=== PATIENT | female | born 1985 | race Caucasian/White ===

== ENCOUNTER 2016-09-07 04:34 | Emergency (ER) | payer SELFPAY ==
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
[2016-09-07] MEDS ORDERED: morphine CARPU-JECT 2 MG/1 ML DISP.SYRIN IVPUSH ONE (04:42)
[2016-09-07] MEDS ORDERED: ONDANSETRON 4 MG/2 ML VIAL IVPUSH STA (04:42)
[2016-09-07] MEDS ORDERED: morphine CARPU-JECT 4 MG/1 ML DISP.SYRIN ONE (04:53)
[2016-09-07] MEDS ORDERED: ONDANSETRON 4 MG/2 ML VIAL ONE (04:53)
[2016-09-07] MEDS ORDERED: morphine CARPU-JECT 2 MG/1 ML DISP.SYRIN ONE (04:53)
[2016-09-07 05:17] VITALS: BMI 26.6
[2016-09-07] MEDS ORDERED: KETOROLAC TROMETHAMINE 30 MG/1 ML VIAL IVPUSH ONE (05:27)
[2016-09-07] MEDS ORDERED: LIDOCAINE HCL/PF 1% SDV 5ML VIAL ONE (05:28)
[2016-09-07] MEDS ORDERED: KETOROLAC TROMETHAMINE 30 MG/1 ML VIAL ONE (05:28)
[2016-09-07] MEDS ORDERED: OXYCODONE/APAP 5/325MG COMBO TABLET PO ONE (05:56)
[2016-09-07] MEDS ORDERED: OXYCODONE/APAP 5/325MG COMBO TABLET ONE (05:58)
[2016-09-07 06:14] VITALS: BP 120/88; PULSE 87
== END 2016-09-07 06:15 | disposition home or self-care (01) ==
LOC: JER 04:34
PROC: 3E033GC Introduction of Other Therapeutic Substance into Peripheral Vein, Percutaneous Approach (ICD-10-PCS; principal; 2016-09-07)
PROC: 3E033NZ Introduction of Analgesics, Hypnotics, Sedatives into Peripheral Vein, Percutaneous Approach (ICD-10-PCS; 2016-09-07)
DX: S63.105A Unspecified dislocation of left thumb, initial encounter (principal); Y04.8XXA Assault by other bodily force, initial encounter; Y93.89 Activity, other specified; Y92.481 Parking lot as the place of occurrence of the external cause; F17.210 Nicotine dependence, cigarettes, uncomplicated
CPT/HCPCS: 73130-TC-LT; 73130-TC-RT; 73140-TC-LT; 99283-25

== ENCOUNTER 2017-08-27 20:22 | Inpatient (IN) | payer SELFPAY ==
[2017-08-27] MEDS ORDERED: IBUPROFEN 100 MG/5 ML UNIT DOSE CUPS ONE (20:38)
[2017-08-27] MEDS ORDERED: IBUPROFEN 600 MG TABLET (FP) PO ONE (20:43)
[2017-08-27 20:55] LABS: HCG,QUALITATIVE URINE NEGATIVE
[2017-08-27 20:59] LABS: URINE APPEARANCE SLCLOUDY; URINE BILIRUBIN NEGATIVE (NEGATIVE); URINE BLOOD 1+ (NEGATIVE); URINE COLOR LTYELLOW; URINE GLUCOSE (UA) NEGATIVE (NEGATIVE); URINE KETONE NEGATIVE (NEGATIVE); URINE LEUK ESTERASE TRACE (NEGATIVE); URINE NITRITE NEGATIVE (NEGATIVE); URINE PROTEIN NEGATIVE (NEGATIVE)
[2017-08-27 21:09] LABS: EPI CELLS FEW /HPF (FEW); URINE BACTERIA RARE /hpf (NONE SEEN)
--- NOTE | 2017-08-27 22:21 | PDOC ---
History of Present Illness - General Chief Complaint: SIRS, Suspected/Possible Stated Complaint: FEVER Time Seen by Provider: 08/27/17 22:21 - History of Present Illness Initial Comments: 08/27/17 22:22 Ms. Hinojosa is a 31 yo female w/ pmh of R sided hydronephrosis who presents for evaluation of left sided lower back pain. She reports it started 2 days ago and has been more or less constant. She has previously been diagnosed with hydronephrosis and says that this feels similar although it is on the other side. She took her temperature at home which was 103 and 102.3 at triage. She also reports some nausea and vomiting. The patient denies chest pain, shortness of breath, headache and dizziness. Denies chills, diarrhea and constipation. Denies dysuria, frequency, urgency and hematuria. Allergies: NKDA Past History - Past Medical History Allergies/Adverse Reactions: Allergies Allergy/AdvReac Type Severity Reaction Status Date / Time No Known Allergies Allergy Verified 03/20/16 19:21 Home Medications: Ambulatory Orders Ibuprofen [Motrin -] 600 mg PO TID PRN #20 tablet 03/20/16 Ergocalciferol [Vitamin D2] 50,000 unit PO WEEKLY 08/27/17 Rabeprazole Sodium [Aciphex] 20 mg PO PRN PRN 08/27/17 Cancer: Yes (stomach) COPD: No Other medical history: hydronephrosis bilat - Reproductive History (#): 3 Para: 3 - Immunization History Immunization Up to Date: No - Suicide/Smoking/Psychosocial Hx Smoking Status: Yes Smoking History: Current every day smoker Number of Cigarettes Smoked Daily: 10 Information on smoking cessation initiated: No 'Breaking Loose' booklet given: 03/20/16 Hx Alcohol Use: No Drug/Substance Use Hx: No Substance Use Type: None Review of Systems - Review of Systems Comments:: 08/27/17 23:54 GENERAL/CONSTITUTIONAL: +Fever as described. No weakness. HEAD, EYES, EARS, NOSE AND THROAT: No change in vision. No ear pain or discharge. No sore throat. CARDIOVASCULAR: No chest pain or shortness of breath RESPIRATORY: No cough, wheezing, or hemoptysis. GASTROINTESTINAL: Nausea with vomiting from pain; No diarrhea or constipation. GENITOURINARY: No dysuria, frequency, or change in urination. MUSCULOSKELETAL: +Left back pain SKIN: No rash NEUROLOGIC: No headache, vertigo, loss of consciousness, or change in strength/ sensation. ENDOCRINE: No increased thirst. No abnormal weight change HEMATOLOGIC/LYMPHATIC: No anemia, easy bleeding, or history of blood clots. ALLERGIC/IMMUNOLOGIC: No hives or skin allergy. *Physical Exam - Vital Signs Last Vital Signs Temp Pulse Resp BP Pulse Ox 102 F H 124 H 26 H 124/72 98 08/27/17 20:44 08/27/17 20:44 08/27/17 20:44 08/27/17 20:44 08/27/17 20:44 - Physical Exam Comments: 08/27/17 23:55 GENERAL: Awake, alert, and fully oriented, in no acute distress HEAD: No signs of trauma, normocephalic, atraumatic EYES: PERRLA, EOMI, sclera anicteric, conjunctiva clear ENT: Auricles normal inspection, hearing grossly normal, nares patent, oropharynx clear without exudates. Moist mucosa NECK: Normal ROM, supple, no lymphadenopathy, JVD, or masses LUNGS: No distress, speaks full sentences, clear to auscultation bilaterally HEART: Regular rate and rhythm, normal S1 and S2, no murmurs, rubs or gallops, peripheral pulses normal and equal bilaterally. ABDOMEN: Soft, nontender, normoactive bowel sounds. No guarding, no rebound. No masses EXTREMITIES: +Extreme Left CVA tenderness to palpation. NEUROLOGICAL: Cranial nerves II through XII grossly intact. Normal speech, normal gait, no focal sensorimotor deficits SKIN: Warm, Dry, normal turgor, no rashes or lesions noted. ED Treatment Course - LABORATORY CBC & Chemistry Diagram: 08/27/17 22:45 08/27/17 23:33 - ADDITIONAL ORDERS Additional order review: Laboratory Results 08/27/17 20:44 Urine Color Ltyellow Urine Appearance Slcloudy Urine pH 7.0 Ur Specific Talmo 1.018 Urine Protein Negative Urine Glucose (UA) Negative Urine Ketones Negative Urine Blood 1+ H Urine Nitrite Negative Urine Bilirubin Negative Urine Urobilinogen 2.0 H Ur Leukocyte Esterase Trace Urine WBC (Auto) 1 Urine RBC (Auto) 6 Ur Epithelial Cells Few Urine Bacteria Rare Urine HCG, Qual Negative - Medications Given in the ED: ED Medications Discontinued Medications Generic Name Dose Route Start Last Admin Trade Name Freq PRN Reason Stop Dose Admin Ibuprofen 600 mg 08/27/17 20:43 08/27/17 20:44 Motrin - PO 08/27/17 20:44 600 mg NOW ONE Administration Medical Decision Making - Medical Decision Making 08/28/17 01:00 Ms. Hinojosa is a 31 yo female w/ pmh as described who presents w/ symptoms of lower left back pain and fever. Workup begun with basic labs and abdomen/pelvis CT. Tylenol given for fever control. CT noted 4.6x4.3 septated left ovarian cyst. US ordered for further evaluation. 08/28/17 03:37 US revealed right ovarian cyst 1.0cm complex or possibly hemorrhagic; left ovarian cyst 3.6cm complex or possibly hemorrhagic. 08/28/17 03:38 Patient labs grossly wnl as below. Will admit patient for PEDIATRIC NURSE PRACTITIONER evaluation and pain control. Laboratory Results - last 24 hr 08/27/17 08/27/17 08/27/17 20:44 22:45 22:45 WBC 13.0 H RBC 4.48 Hgb 13.9 Hct 41.6 MCV 93.1 MCH 31.2 MCHC 33.5 RDW 13.4 Plt Count 141 MPV 10.8 D Neutrophils % 76.5 D Lymphocytes % 15.7 D Monocytes % 5.7 Eosinophils % 1.8 Basophils % 0.3 Sodium Cancelled Potassium Cancelled Chloride Cancelled Carbon Dioxide Cancelled Anion Gap Cancelled BUN Cancelled Creatinine Cancelled Creat Clearance w eGFR Cancelled Random Glucose Cancelled Calcium Cancelled Total Bilirubin Cancelled AST Cancelled ALT Cancelled Alkaline Phosphatase Cancelled C-Reactive Protein Total Protein Cancelled Albumin Cancelled Urine Color Ltyellow Urine Appearance Slcloudy Urine pH 7.0 Ur Specific Talmo 1.018 Urine Protein Negative Urine Glucose (UA) Negative Urine Ketones Negative Urine Blood 1+ H Urine Nitrite Negative Urine Bilirubin Negative Urine Urobilinogen 2.0 H Ur Leukocyte Esterase Trace Urine WBC (Auto) 1 Urine RBC (Auto) 6 Ur Epithelial Cells Few Urine Bacteria Rare Urine HCG, Qual Negative 08/27/17 08/27/17 22:45 23:33 WBC RBC Hgb Hct MCV MCH MCHC RDW Plt Count MPV Neutrophils % Lymphocytes % Monocytes % Eosinophils % Basophils % Sodium 138 Potassium 3.6 Chloride 106 Carbon Dioxide 24 Anion Gap 8 BUN 11 Creatinine 0.7 Creat Clearance w eGFR > 60 Random Glucose 94 Calcium 8.1 L Total Bilirubin 0.3 D AST 16 ALT 23 Alkaline Phosphatase 87 C-Reactive Protein Cancelled 3.7 H Total Protein 6.8 Albumin 3.4 Urine Color Urine Appearance Urine pH Ur Specific Talmo Urine Protein Urine Glucose (UA) Urine Ketones Urine Blood Urine Nitrite Urine Bilirubin Urine Urobilinogen Ur Leukocyte Esterase Urine WBC (Auto) Urine RBC (Auto) Ur Epithelial Cells Urine Bacteria Urine HCG, Qual *DC/Admit/Observation/Transfer Diagnosis at time of Disposition: Pain Ovarian cyst Qualifiers: Laterality: bilateral Qualified Code(s): N83.201 - Unspecified ovarian cyst, right side - Discharge Dispostion Admit: Yes - Referrals - Patient Instructions - Post Discharge Activity
[2017-08-27] MEDS ORDERED: morphine CARPU-JECT 2 MG/1 ML DISP.SYRIN IVPUSH ONE (22:36)
[2017-08-27] MEDS ORDERED: SODIUM CHLORIDE 1,000 ML IV STA (22:36)
[2017-08-27] MEDS ORDERED: ACETAMINOPHEN 1000 MG/100 ML VIAL (NON FORMULARY) IVPB ONE (22:40)
[2017-08-27] MEDS ORDERED: ACETAMINOPHEN INJECTION 100 ML IVPB ONE (22:55)
[2017-08-27 22:58] LABS: BASO % 0.3 % (0-2.0); EOS % 1.8 % (0-4.5); HEMATOCRIT 41.6 % (32.4-45.2); HEMOGLOBIN 13.9 GM/dL (10.7-15.3); LYMPH % 15.7 % (8-40); MCH 31.2 pg (25.7-33.7); MCHC 33.5 g/dl (32.0-36.0); MEAN CELL VOLUME 93.1 fl (80-96); MEAN PLT VOLUME 10.8 fl (7.5-11.1); MONO % 5.7 % (3.8-10.2); NEUT % 76.5 % (42.8-82.8); PLATELET COUNT 141 K/MM3 (134-434); RBC 4.48 M/mm3 (3.60-5.2); RDW 13.4 % (11.6-15.6)
[2017-08-27] MEDS ORDERED: ONDANSETRON 4 MG/2 ML VIAL IVPUSH ONE (23:18)
[2017-08-27] MEDS ORDERED: ONDANSETRON 4 MG/2 ML VIAL ONE (23:35)
[2017-08-27 23:58] LABS: ALBUMIN 3.4 g/dl (3.4-5.0); ANION GAP 8 (8-16); BILIRUBIN,TOTAL 0.3 mg/dL (0.2-1.0); BLOOD UREA NITROGEN 11 mg/dL (7-18); CALCIUM 8.1 mg/dL (8.5-10.1); CHLORIDE 106 mmol/L (98-107); CO2 24 mmol/L (21-32); CREATININE 0.7 mg/dL (0.55-1.02); GLUCOSE,RANDOM 94 mg/dL (74-106); POTASSIUM 3.6 mmol/L (3.5-5.1); SGOT/AST 16 U/L (15-37); SGPT/ALT 23 U/L (12-78); SODIUM 138 mmol/L (136-145); TOT PROT 6.8 g/dl (6.4-8.2)
[2017-08-27 23:59] LABS: ALK PHOS 87 U/L (45-117)
--- NOTE | 2017-08-28 00:13 | PDOC ---
Attending Attestation - Resident Resident Name: Pete Cheney - ED Attending Attestation I have performed the following: I have examined & evaluated the patient, The case was reviewed & discussed with the resident, I agree w/resident's findings & plan - HPI HPI: 08/28/17 00:13 Pt comes with exquisite back pain and fever. If we touch her back with light touch she cries with pain. Unclear what id happening. Pt has a hx of kidney pathology. Labs are normal, except for WBC13 and CRP of 3.7 which is elevated. Pt has a normal exam other than the back pain. - Physicial Exam PE: 08/28/17 00:15 Agree with resident exam - Medical Decision Making 08/28/17 00:19 CT Abd pelvis pending. 08/28/17 00:48 Pt's left ovary/fallopian tube is large and septated on CT; she will be sent for a sono. We are still awaiting official CT reading. Pt will get treated with doxy 100mg and rocephin 1g; we will send urine for STD testing 08/28/17 00:49 We need to rule pt out for ovarian torsion 08/28/17 02:10 CXR is normal Pt is at sonogram dept for US of her ovaries 08/28/17 03:29 Patient Name: JESSIKA FARRELL THIS IS A PRELIMINARY REPORT FROM [facility] DATE OF SERVICE: 2017-08-28 01:02:56 IMAGES: [id number] EXAM: Transabdominal pelvic ultrasound, endovaginal pelvic ultrasound and pelvic duplex HISTORY: Rule out left ovarian torsion COMPARISON: None. FINDINGS: Transabdominal pelvic ultrasound:Uterus is anteverted and measures 9.5centimeters in length. Endovaginal pelvic ultrasound:The endometrium is 11millimeters in thickness which is normal. There are no fibroids. The right ovary measures 2.9centimeters in length, contains a 1.0 cm complex or possibly hemorrhagic cyst, and demonstrates normal flow. Left ovary measures 5.3centimeters in length contains a 3.6 and a complex, possibly hemorrhagic cyst left demonstrates normal flow. There is no significant free fluid. Pelvic duplex: There is normal arterial and venous flow in both ovaries. IMPRESSION: Bilateral hemorrhagic cysts without torsion or free fluid. Endometriomas are considered. THIS DOCUMENT HAS BEEN ELECTRONICALLY SIGNED 08/28/17 03:32 Patient Name: JESSIKA FARRELL THIS IS A PRELIMINARY REPORT FROM [facility] DATE OF SERVICE: 2017-08-28 00:18:37 IMAGES: [id number] EXAM: ABDOMEN CT WITH CONTRAST* HISTORY: Rule out abscess COMPARISON: None. FINDINGS: Lung bases are clear. The visualized cardiac chambers are normal size and configuration. There are gallstones, but no gallbladder inflammation or biliary duct dilation. Normal liver, pancreas, spleen, adrenal glands and kidneys. The stomach and abdominal small and large bowel are normal. There is no aortic aneurysm. There is no significant retroperitoneal lymphadenopathy. The pelvic small and large bowel are normal. The appendix is normal there is a 4.6 x 4.3 cm septated left ovarian cyst. The uterus and right adnexal structures are normal. Urinary bladder is unremarkable. There is no pelvic free fluid. No discrete pelvic lymphadenopathy is identified. IMPRESSION: Gallstones. 4.6 cm septated left ovarian cyst trace trace free fluid may be further evaluated with pelvic ultrasound. THIS DOCUMENT HAS BEEN ELECTRONICALLY SIGNED
[2017-08-28] MEDS ORDERED: DOXYCYCLINE INJECTION 100 MG in DEXTROSE 5%-WATER - 150 ML IVPB ONE (00:39)
[2017-08-28] MEDS ORDERED: CEFTRIAXONE 1 GM in DEXTROSE 5%-WATER - 50 ML IVPB ONE (00:40)
[2017-08-28] MEDS ORDERED: morphine CARPU-JECT 2 MG/1 ML DISP.SYRIN IVPUSH ONE (00:42)
[2017-08-28] MEDS ORDERED: CEFTRIAXONE 1 GM/50 ML BAG ONE ×2 (00:47→10:57)
[2017-08-28] MEDS ORDERED: DOXYCYCLINE HYCLATE 100 MG VIAL ONE (00:47)
[2017-08-28] MEDS ORDERED: MORPHINE SULFATE 10 MG/1 ML *VIAL ONE ×2 (00:54→14:01)
[2017-08-28] MEDS ORDERED: DOXYCYCLINE INJECTION 100 MG in DEXTROSE 5%-WATER - 100 ML IVPB ONE (01:00)
[2017-08-28] MEDS ORDERED: diphenhydrAMINE HCL 25 MG CAPSULE (FP) PO ONE ×2 (02:03→02:04)
--- NOTE | 2017-08-28 04:01 | HP ---
CHIEF COMPLAINT: L- Flank Pain, Fever, Chills PCP: HISTORY OF PRESENT ILLNESS: This is a 31 y/o woman with a past medical history of Hydronephrosis. Who presents to the ED with severe flank pain radiating to her left lower abdomen/ Hip, fever, and chills. Patient reports having nausea, vomiting, generalized malaise and weakness. Patient describes the flank pain as sharp, intermittent "coming in waves". Patient also reports noting brown foul smelling urine. Patient denies cough, dizziness, WEBSTER, SOB, CP, palpitations, diarrhea, constipation, dysuria. Patient has not received the Influenza Vaccine ER course was notable for: (1) Sepsis Criteria Met: T max 102, P 124, R 26, WBC 13,000 (2) US- Bilateral ?hemorrhagic cysts without torsion or free fluid (3) CTAP- Gallstones, 4.6cm septated left ovarian cyst. Trace free fluid Recent Travel: None PAST MEDICAL HISTORY: See HPI PAST SURGICAL HISTORY: x3 Social History: Smoking: Former Alcohol: Seldom Drugs: None Lives with children Family History: Allergies No Known Allergies Allergy (Verified 03/20/16 19:21) HOME MEDICATIONS: Home Medications Medication Instructions Recorded Ibuprofen [Motrin -] 600 mg PO TID PRN #20 tablet 03/20/16 Ergocalciferol [Vitamin D2] 50,000 unit PO WEEKLY 08/27/17 Rabeprazole Sodium [Aciphex] 20 mg PO PRN PRN 08/27/17 REVIEW OF SYSTEMS CONSTITUTIONAL: fever, chills Absent: diaphoresis, generalized weakness, malaise, loss of appetite, weight change HEENT: Absent: rhinorrhea, nasal congestion, throat pain, throat swelling, difficulty swallowing, mouth swelling, ear pain, eye pain, visual changes CARDIOVASCULAR: Absent: chest pain, syncope, palpitations, irregular heart rate, lightheadedness , peripheral edema RESPIRATORY: Absent: cough, shortness of breath, dyspnea with exertion, orthopnea, wheezing, stridor, hemoptysis GASTROINTESTINAL: abdominal pain, nausea, vomiting Absent: abdominal distension, diarrhea, constipation, melena, hematochezia GENITOURINARY: flank pain Absent: dysuria, frequency, urgency, hesitancy, hematuria, genital pain MUSCULOSKELETAL: Absent: myalgia, arthralgia, joint swelling, back pain, neck pain SKIN: Absent: rash, itching, pallor HEMATOLOGIC/IMMUNOLOGIC: Absent: easy bleeding, easy bruising, lymphadenopathy, frequent infections ENDOCRINE: Absent: unexplained weight gain, unexplained weight loss, heat intolerance, cold intolerance NEUROLOGIC: Absent: headache, focal weakness or paresthesias, dizziness, unsteady gait, seizure, mental status changes, bladder or bowel incontinence PSYCHIATRIC: Absent: anxiety, depression, suicidal or homicidal ideation, hallucinations. PHYSICAL EXAMINATION Vital Signs - 24 hr 08/27/17 08/27/17 08/28/17 20:44 23:38 01:35 Temperature 102 F H 98.3 F Pulse Rate 124 H Pulse Rate [ 68 Left Radial] Respiratory 26 H 26 H 20 Rate Blood Pressure 124/72 Blood Pressure 132/80 [Left Arm] O2 Sat by Pulse 98 98 99 Oximetry (%) GENERAL: Awake, alert, and fully oriented, in no acute distress. HEAD: Normal with no signs of trauma. EYES: Pupils equal, round and reactive to light, extraocular movements intact, sclera anicteric, conjunctiva clear. No lid lag. EARS, NOSE, THROAT: Ears normal, nares patent, oropharynx clear without exudates. Dry mucous membranes. NECK: Normal range of motion, supple without lymphadenopathy, JVD, or masses. LUNGS: Breath sounds equal, clear to auscultation bilaterally. No wheezes, and no crackles. No accessory muscle use. HEART: Regular rate and rhythm, normal S1 and S2 without murmur, rub or gallop. ABDOMEN: Soft, LLQ tenderness, not distended, normoactive bowel sounds, no guarding, no rebound, no masses. No hepatomegaly or splenomegaly. MUSCULOSKELETAL: Normal range of motion at all joints. No bony deformities or tenderness. L- CVA tenderness. UPPER EXTREMITIES: 2+ pulses, warm, well-perfused. No cyanosis. No clubbing. No peripheral edema. LOWER EXTREMITIES: 2+ pulses, warm, well-perfused. No calf tenderness. No peripheral edema. NEUROLOGICAL: Cranial nerves II-XII intact. Normal speech. Gait not observed. PSYCHIATRIC: Cooperative. Good eye contact. Appropriate mood and affect. SKIN: Warm, dry, normal turgor, no rashes or lesions noted, normal capillary refill. Laboratory Results - last 24 hr 08/27/17 08/27/17 08/27/17 20:44 22:45 22:45 WBC 13.0 H RBC 4.48 Hgb 13.9 Hct 41.6 MCV 93.1 MCH 31.2 MCHC 33.5 RDW 13.4 Plt Count 141 MPV 10.8 D Neutrophils % 76.5 D Lymphocytes % 15.7 D Monocytes % 5.7 Eosinophils % 1.8 Basophils % 0.3 Sodium Cancelled Potassium Cancelled Chloride Cancelled Carbon Dioxide Cancelled Anion Gap Cancelled BUN Cancelled Creatinine Cancelled Creat Clearance w eGFR Cancelled Random Glucose Cancelled Calcium Cancelled Total Bilirubin Cancelled AST Cancelled ALT Cancelled Alkaline Phosphatase Cancelled C-Reactive Protein Total Protein Cancelled Albumin Cancelled Urine Color Ltyellow Urine Appearance Slcloudy Urine pH 7.0 Ur Specific Eva 1.018 Urine Protein Negative Urine Glucose (UA) Negative Urine Ketones Negative Urine Blood 1+ H Urine Nitrite Negative Urine Bilirubin Negative Urine Urobilinogen 2.0 H Ur Leukocyte Esterase Trace Urine WBC (Auto) 1 Urine RBC (Auto) 6 Ur Epithelial Cells Few Urine Bacteria Rare Urine HCG, Qual Negative 08/27/17 08/27/17 22:45 23:33 WBC RBC Hgb Hct MCV MCH MCHC RDW Plt Count MPV Neutrophils % Lymphocytes % Monocytes % Eosinophils % Basophils % Sodium 138 Potassium 3.6 Chloride 106 Carbon Dioxide 24 Anion Gap 8 BUN 11 Creatinine 0.7 Creat Clearance w eGFR > 60 Random Glucose 94 Calcium 8.1 L Total Bilirubin 0.3 D AST 16 ALT 23 Alkaline Phosphatase 87 C-Reactive Protein Cancelled 3.7 H Total Protein 6.8 Albumin 3.4 Urine Color Urine Appearance Urine pH Ur Specific Eva Urine Protein Urine Glucose (UA) Urine Ketones Urine Blood Urine Nitrite Urine Bilirubin Urine Urobilinogen Ur Leukocyte Esterase Urine WBC (Auto) Urine RBC (Auto) Ur Epithelial Cells Urine Bacteria Urine HCG, Qual Patient Name: JESSIKA FARRELL THIS IS A PRELIMINARY REPORT FROM [facility] DATE OF SERVICE: 2017-08-28 01:02:56 IMAGES: 93 EXAM: Transabdominal pelvic ultrasound, endovaginal pelvic ultrasound and pelvic duplex HISTORY: Rule out left ovarian torsion COMPARISON: None. FINDINGS: Transabdominal pelvic ultrasound:Uterus is anteverted and measures 9.5centimeters in length. Endovaginal pelvic ultrasound:The endometrium is 11millimeters in thickness which is normal. There are no fibroids. The right ovary measures 2.9centimeters in length, contains a 1.0 cm complex or possibly hemorrhagic cyst, and demonstrates normal flow. Left ovary measures 5.3centimeters in length contains a 3.6 and a complex, possibly hemorrhagic cyst left demonstrates normal flow. There is no significant free fluid. Pelvic duplex: There is normal arterial and venous flow in both ovaries. IMPRESSION: Bilateral hemorrhagic cysts without torsion or free fluid. Endometriomas are considered. THIS DOCUMENT HAS BEEN ELECTRONICALLY SIGNED 08/28/17 03:32 Patient Name: JESSIKA FARRELL THIS IS A PRELIMINARY REPORT FROM [facility] DATE OF SERVICE: 2017-08-28 00:18:37 IMAGES: 520 EXAM: ABDOMEN CT WITH CONTRAST* HISTORY: Rule out abscess COMPARISON: None. FINDINGS: Lung bases are clear. The visualized cardiac chambers are normal size and configuration. There are gallstones, but no gallbladder inflammation or biliary duct dilation. Normal liver, pancreas, spleen, adrenal glands and kidneys. The stomach and abdominal small and large bowel are normal. There is no aortic aneurysm. There is no significant retroperitoneal lymphadenopathy. The pelvic small and large bowel are normal. The appendix is normal there is a 4.6 x 4.3 cm septated left ovarian cyst. The uterus and right adnexal structures are normal. Urinary bladder is unremarkable. There is no pelvic free fluid. No discrete pelvic lymphadenopathy is identified. IMPRESSION: Gallstones. 4.6 cm septated left ovarian cyst trace trace free fluid may be further evaluated with pelvic ultrasound. THIS DOCUMENT HAS BEEN ELECTRONICALLY SIGNED ASSESSMENT/PLAN: 31 y/o woman with a PMHx of Hydronephrosis. Admitted to [facility] for Sepsis, Hemorrhagic Cysts, ? Pyelonephritis. FEN - D51/2NS@100ml/hr - Replete lytes prn - NPO Code Status: Full Code Dispo: Requires Inpatient Care Problem List - Problem (1) Sepsis Assessment/Plan: - Likely secondary to ovarian cysts vs pyelonephritis vs inflammatory response vs malignancy - qSOFA 1 - SIRS Criteria Met III T Max 102, P 124, WBC 13.0 - NS bolus given in ED - Ordered lactic acid post fluids- 0.6 - Will treat empirically with ceftriaxone - Urine Culture-pending - Blood Cultures ordered now - CBCD, BMP in am - Monitor vitals Code(s): A41.9 - SEPSIS, UNSPECIFIED ORGANISM (2) Ovarian cyst, bilateral Assessment/Plan: - US- reviewed - CTAP- reviewed - On exam, +LLQ, pelvic pain, with guarding and rebound tenderness noted - Doxycycline given in ED - Appreciate [employer] Support Consult - NPO - Continue IVF - Monitor vitals - Monitor CBCD, BMP Code(s): N83.201 - UNSPECIFIED OVARIAN CYST, RIGHT SIDE; N83.202 - UNSPECIFIED OVARIAN CYST, LEFT SIDE (3) Left flank pain Assessment/Plan: - r/o Pyelonephritis - CTAP- no hydronephrosis, no renal calculi - WBC 13,000, T Max 102.0 - Continue IVF - Will empirically treat with ceftriaxone - Supportive care - Pain Mgmt- Morphine sulfate prn - Monitor CBCD - Monitor vitals - Consider Urology consult if condition worsens - Blood Cultures-pending Code(s): R10.9 - UNSPECIFIED ABDOMINAL PAIN (4) History of hydronephrosis Code(s): Z87.448 - PERSONAL HISTORY OF OTHER DISEASES OF URINARY SYSTEM (5) DVT prophylaxis Assessment/Plan: - OOB - SCDs - Will hold Heparin secondary ?hemorrhagic cysts Code(s): SBH3485 - Visit type - Emergency Visit Emergency Visit: Yes ED Registration Date: 08/28/17 Care time: The patient presented to the Emergency Department on the above date and was hospitalized for further evaluation of their emergent condition. - New Patient This patient is new to me today: Yes Date on this admission: 08/28/17 - Critical Care Critical Care patient: No Hospitalist Screening - Patient: 50 - 75 years old and never had a screening colonoscopy: No History of colon or rectal polyps, or CA: No History of IBD, Crohn's disease or UC: No History of abdominal radiation therapy as a child: No - Relative: 1 with colon or rectal CA, or polyps at age 60 or younger: No Colon or rectal CA diagnosed at age 45 or younger: No Multiple relatives with colon or rectal CA: No - Outcome: Screening Result: Negative Screen
[2017-08-28] MEDS ORDERED: MORPHINE SULFATE 10 MG/1 ML *VIAL IVPUSH PRN (05:23)
[2017-08-28] MEDS ORDERED: ONDANSETRON 4 MG/2 ML VIAL IVPUSH PRN (05:23)
[2017-08-28] MEDS ORDERED: ACETAMINOPHEN 325 MG TABLET (FP) PO PRN (05:24)
[2017-08-28] MEDS: DEXTROSE 5%-0.45% SALINE 1,000 ML IV SCH ×2 (05:31→18:07)
[2017-08-28 08:02] LABS: BASO % 0.3 % (0-2.0); EOS % 1.8 % (0-4.5); HEMATOCRIT 39.4 % (32.4-45.2); HEMOGLOBIN 13.1 GM/dL (10.7-15.3); LYMPH % 20.7 % (8-40); MCH 30.6 pg (25.7-33.7); MCHC 33.1 g/dl (32.0-36.0); MEAN CELL VOLUME 92.3 fl (80-96); MEAN PLT VOLUME 10.2 fl (7.5-11.1); MONO % 5.7 % (3.8-10.2); NEUT % 71.5 % (42.8-82.8); PLATELET COUNT 107 K/MM3 (134-434); RBC 4.27 M/mm3 (3.60-5.2); RDW 13.2 % (11.6-15.6); WHITE BLOOD COUNT 11.5 K/mm3 (4.0-10.0)
[2017-08-28 08:24] LABS: ANION GAP 5 (8-16); BLOOD UREA NITROGEN 6 mg/dL (7-18); CALCIUM 7.9 mg/dL (8.5-10.1); CHLORIDE 108 mmol/L (98-107); CO2 29 mmol/L (21-32); CREATININE 0.6 mg/dL (0.55-1.02); GLUCOSE,RANDOM 81 mg/dL (74-106); POTASSIUM 3.6 mmol/L (3.5-5.1); SODIUM 142 mmol/L (136-145)
--- NOTE | 2017-08-28 08:39 | HOSP ---
Subjective - Review of Symptoms Events since last encounter: Patient is comfortable with no acute distress, No nausea or vomiting, no fever or chills Vital Signs Temperature 98.0 F 08/28/17 07:35 Pulse Rate 74 08/28/17 07:35 Respiratory Rate 18 08/28/17 07:35 Blood Pressure 126/74 08/28/17 07:35 O2 Sat by Pulse Oximetry (%) 99 08/28/17 07:35 GENERAL: Awake, alert, and fully oriented, in no acute distress. HEAD: Normal with no signs of trauma. EYES: Pupils equal, round and reactive to light, extraocular movements intact, sclera anicteric, conjunctiva clear. EARS, NOSE, THROAT: Ears normal, oropharynx clear without exudates. MMM. NECK: Normal range of motion, supple without lymphadenopathy, JVD, or masses. LUNGS: Breath sounds equal, clear to auscultation bilaterally. No wheezes, and no crackles. No accessory muscle use. HEART: Regular rate and rhythm, normal S1 and S2 without murmur, rub or gallop. ABDOMEN: Soft, LLQ tenderness, not distended, normoactive bowel sounds, no guarding, no rebound, no masses. MUSCULOSKELETAL: Normal range of motion at all joints. No bony deformities or tenderness. L- CVA tenderness. EXTREMITIES: 2+ pulses, warm, well-perfused. No cyanosis. No clubbing. No peripheral edema. NEUROLOGICAL: Cranial nerves II-XII intact. Normal speech. Gait not observed. PSYCHIATRIC: Cooperative. Good eye contact. Appropriate mood and affect. SKIN: Warm, dry, normal turgor, no rashes or lesions noted, normal capillary refill. CBCD WBC 11.5 K/mm3 (4.0-10.0) H 08/28/17 06:00 RBC 4.27 M/mm3 (3.60-5.2) 08/28/17 06:00 Hgb 13.1 GM/dL (10.7-15.3) 08/28/17 06:00 Hct 39.4 % (32.4-45.2) 08/28/17 06:00 MCV 92.3 fl (80-96) 08/28/17 06:00 MCHC 33.1 g/dl (32.0-36.0) 08/28/17 06:00 RDW 13.2 % (11.6-15.6) 08/28/17 06:00 Plt Count 107 K/MM3 (134-434) L D 08/28/17 06:00 MPV 10.2 fl (7.5-11.1) 08/28/17 06:00 CMP Sodium 142 mmol/L (136-145) 08/28/17 06:00 Potassium 3.6 mmol/L (3.5-5.1) 08/28/17 06:00 Chloride 108 mmol/L (98-107) H 08/28/17 06:00 Carbon Dioxide 29 mmol/L (21-32) 08/28/17 06:00 Anion Gap 5 (8-16) L 08/28/17 06:00 BUN 6 mg/dL (7-18) L 08/28/17 06:00 Creatinine 0.6 mg/dL (0.55-1.02) 08/28/17 06:00 Creat Clearance w eGFR > 60 (>60) 08/27/17 23:33 Random Glucose 81 mg/dL (74-106) 08/28/17 06:00 Calcium 7.9 mg/dL (8.5-10.1) L 08/28/17 06:00 Total Bilirubin 0.3 mg/dL (0.2-1.0) D 08/27/17 23:33 AST 16 U/L (15-37) 08/27/17 23:33 ALT 23 U/L (12-78) 08/27/17 23:33 Alkaline Phosphatase 87 U/L (45-117) 08/27/17 23:33 Total Protein 6.8 g/dl (6.4-8.2) 08/27/17 23:33 Albumin 3.4 g/dl (3.4-5.0) 08/27/17 23:33 Current Medications Generic Name Dose Route Start Last Admin Trade Name Freq PRN Reason Stop Dose Admin Acetaminophen 650 mg 08/28/17 05:24 Tylenol - PO Q6H PRN FEVER Dextrose/Sodium Chloride 1,000 mls @ 100 mls/hr 08/28/17 05:30 08/28/17 05:31 D5-1/2ns - IV 100 mls/hr ASDIR CAMPBELL Administration CEFTRIAXONE 1 G/50 ML PREMIX 50 mls @ 100 mls/hr 08/28/17 10:00 Ceftriaxone 1 Gm-D5w Bag IVPB DAILY [facility] Morphine Sulfate 2 mg 08/28/17 05:23 Morphine Injection - IVPUSH Q4H PRN PAIN LEVEL 6-10 Ondansetron HCl 4 mg 08/28/17 05:23 Zofran Injection IVPUSH Q6H PRN NAUSEA Home Medications Medication Instructions Recorded Ibuprofen [Motrin -] 600 mg PO TID PRN #20 tablet 03/20/16 Ergocalciferol [Vitamin D2] 50,000 unit PO WEEKLY 08/27/17 Rabeprazole Sodium [Aciphex] 20 mg PO PRN PRN 08/27/17 Transabdominal pelvic ultrasound: IMPRESSION: Bilateral hemorrhagic cysts without torsion or free fluid. Endometriomas are considered. CT abdomen and pelvis : IMPRESSION: Gallstones. positive for pancreatic mass of 4cm 4.6 cm septated left ovarian cyst trace free fluid may be further evaluated with pelvic ultrasound. A/P: 31 y/o woman with a PMHx of Hydronephrosis. Admitted for Sepsis, Hemorrhagic Cysts,possible Pyelonephritis. # Sepsis presented with Tmax of 102 and HR of 120, on IV ceftriaxone continue for now. continue IVF, ID consulted. will get culture of strept throat. Follow Bcx and Ua and Urine Cx. # Pancreatic mass at the head of pancreas around 4CM , Gi on the case , ordered MRI of the abdomen r/o pancreatric mass # Ovarian cyst, bilateral, CT reported 4.6cm septated Left Ovarian cyst with trace free fluid. needs further evaluation # Left flank pain with hx of hydronephrosis jim't r/o Pyelonephritis continue IV ANTIBIOTIC DVT prophylaxis: OOB,SCDs, hold Heparin secondary possible hemorrhagic cysts Physical Examination Vital Signs: Vital Signs Temperature 98.0 F 08/28/17 07:35 Pulse Rate 74 08/28/17 07:35 Respiratory Rate 18 08/28/17 07:35 Blood Pressure 126/74 08/28/17 07:35 O2 Sat by Pulse Oximetry (%) 99 08/28/17 07:35 Labs: CBC, BMP 08/28/17 06:00 08/28/17 06:00
[2017-08-28] MEDS: CEFTRIAXONE 1 G/50 ML PREMIX 50 ML IVPB SCH (11:04)
[2017-08-28 16:18] VITALS: BMI 29.2
[2017-08-28] MEDS ORDERED: PNEUMOC 13-VAL CONJ-DIP CRM/PF 0.5 ML DISP.SYRIN IM ONE (17:20)
[2017-08-28] MEDS ORDERED: FLU VACCINE QUAD 60 MCG/0.5 ML (MDV 17-18) IM ONE (17:30)
--- NOTE | 2017-08-28 18:10 | CON.GI ---
Consult Consult Specialty:: GI: Dr. Plascencia covering for Dr. Beauchamp Referred by:: Hospitalist Reason for Consultation:: Abnormal imaging study of pancreas - History of Present Illness Chief Complaint: I had lower back pain History of Present Illness: 31F admitted through [facility] for evaluation of lower back pain pain radiating to her pelvis. This began this past monday and she said that at home she had a temp of 103F. She continues to have low grade fevers. She described nausea yesterday but not today. She had a CT scan of the abdomen raising the quesition of homogeneous fuillness at the head of the pancreas and borderline enlarged spleen along with large left and small right ovarian cysts. She denies rectal bleeding, diarrhea, unintentional weight loss, change in bowel habits. She describes her urine as dark and foul smelling. she also complains of a sore throat from yesterday as well. - Past Medical History Gastrointestinal: Yes: Diverticulosis (noted on CT scan 2015) Hepatobiliary: Yes: Cholelithiasis ...LMP: 08/11/17 ...: No - Past Surgical History Additional Surgical History: None - Alcohol/Substance Use Hx Alcohol Use: No - Smoking History Smoking history: Current every day smoker Aproximately how many cigarettes per day: 10 Home Medications - Allergies Allergies/Adverse Reactions: Allergies Allergy/AdvReac Type Severity Reaction Status Date / Time No Known Allergies Allergy Verified 03/20/16 19:21 - Home Medications Home Medications: Ambulatory Orders Ibuprofen [Motrin -] 600 mg PO TID PRN #20 tablet 03/20/16 Ergocalciferol [Vitamin D2] 50,000 unit PO WEEKLY 08/27/17 Rabeprazole Sodium [Aciphex] 20 mg PO PRN PRN 08/27/17 Family Disease History - Family Disease History Family Disease History: Other: Father (: 62: stomach cancer), Mother (Alive : 56: CVA / thyroid d/o), Brother (1 H), Sister (2, 1 with obesity s/p gastric bypass), Son (2: healthy), Daughter (1, healthy) Other Family History: maternal GM: some form of cancer Review of Systems - Review of Systems Constitutional: reports: Fever. denies: Unintentional Wgt. Loss HENT: reports: Throat Pain Cardiovascular: denies: Chest Pain Respiratory: denies: Cough, SOB Gastrointestinal: reports: Nausea. denies: Abdominal Pain, Diarrhea, Rectal Bleeding Genitourinary: denies: Burning, Discharge, Frequency, Vaginal Bleeding Musculoskeletal: reports: Back Pain (lower back pain) Physical Exam-GI Vital Signs: Vital Signs Temperature 100.4 F H 08/28/17 16:30 Pulse Rate 114 H 08/28/17 16:30 Respiratory Rate 20 08/28/17 16:30 Blood Pressure 113/63 08/28/17 16:30 O2 Sat by Pulse Oximetry (%) 98 08/28/17 16:19 Constitutional: No: Calm Eyes: No: Sclera Icterus Cardiovascular: Yes: Tachycardia. No: Murmur Respiratory: Yes: CTA Bilaterally Gastrointestinal Inspection: Yes: Other (decorative umbilical ring, + pelvic tattoo). No: Distention ...Auscultate: Yes: Normoactive Bowel Sounds ...Palpate: Yes: Soft, Tenderness (mild suprapubic TTP), Other (negative parrish' s). No: Guarding, Splenomegaly, Tenderness, Rebound ...Percussion: No: Tympanitic Edema: No (No LE edema) Neurological: Yes: Alert, Oriented Psychiatric: Yes: Alert, Oriented Labs: CBC, BMP 08/28/17 06:00 08/28/17 06:00 Hepatic Panel Total Bilirubin 0.3 mg/dL (0.2-1.0) D 08/27/17 23:33 AST 16 U/L (15-37) 08/27/17 23:33 ALT 23 U/L (12-78) 08/27/17 23:33 Alkaline Phosphatase 87 U/L (45-117) 08/27/17 23:33 Albumin 3.4 g/dl (3.4-5.0) 08/27/17 23:33 Imaging - Results Cat Scan: Report Reviewed, Image Reviewed Problem List - Problems (1) Pancreatic abnormality Assessment/Plan: Prominent pancreatic head noted on CT scan. No described on previous study. This does not seem to be related to her current clinical condition as there is no clinical evidence of acute pancreatitis. Amylase/Lipase WNL as well Plan: Ordered MRI of abdomen with contrast and with MRCP. Pending results, explained to Ms. Hinojosa that she may need EUS as an outpatient for further evaluation Code(s): Q45.3 - [facility] MALFORM[facility] PANCREAS AND PANCREATIC DUCT
--- NOTE | 2017-08-28 23:16 | EKG ---
Test Reason : Blood Pressure : / mmHG Vent. Rate : 084 BPM Atrial Rate : 084 BPM P-R Int : 168 ms QRS Dur : 082 ms QT Int : 384 ms P-R-T Axes : 053 081 037 degrees QTc Int : 453 ms NORMAL SINUS RHYTHM NORMAL ECG NO PREVIOUS ECGS AVAILABLE Confirmed by JOVANNI BEAUCHAMP MD ([id number]) on 08/28/2017 11:16:18 PM Referred By: Confirmed By:JOVANNI BEAUCHAMP MD
--- NOTE | 2017-08-29 06:25 | CON.OBG ---
Consult Consult Specialty:: ob/gyn doctor - History of Present Illness Chief Complaint: sonogram finding of ovarian cyst History of Present Illness: 31 y/o admitted to [facility] with pyelonephritis. Sono demonstrates ovarian cysts.Pt has a gn doc. Explained that ovarian cysts can be physiologic. They are described as being hem type. 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: Alzheimer's, CVA, Dementia, Migraine, Multiple Sclerosis, Peripheral Neuropathy, Parkinson's, Seizure, Syncope, TIA, Vertigo, Other Cardio/Vascular: No: AFIB, Aneurysm, Aortic Insufficiency, Aortic Stenosis, CAD , CHF, Deep Vein Thrombosis, HTN, Hyperlipdemia, [place], Mitral Insufficiency, Mitral Stenosis, Murmur, Pulmonary Hypertension, Other Pulmonary: No: Asthma, Bronchitis, Cancer, COPD, O2 Dependent, Pneumonia, Previously Intubated, Pulmonary Embolus, Pulmonary Fibrosis, Sleep Apnea, Other Gastrointestinal: Yes: Diverticulosis (noted on CT scan 2016) Hepatobiliary: Yes: Cholelithiasis Renal/: No: Renal Failure, Renal Inusuff, BPH, Cancer, Hematuria, Hemodialysis , Neurogenic Bladder, Renal Calculi, UTI, Other Reproductive: No: Ectopic , Endometriosis, Fibroids, PID, Polycystic Ovary Syndrome, Postmenopausal, Other ...LMP: 08/11/17 ...: No Infectious Disease: No: AIDS, C-Diff, Herpes Zoster, HIV, MRSA, STD's, Tuberculosis, VREF, Other Psych: No: Addictions, Anxiety, Bipolar, Depression, Panic, Psychosis, Schizophrenia, Other Musculoskeletal: No: Bursitis, Chronic low back pain, Hemiparesis, Hemiplegia, Osteoarthritis, Paraplegia, Other Rheumatology: No: Fibromyalgia, Gout, Lupus, Rheumatoid Arthritis, Sarcoidosis, Vasculitis, Other ENT: No: Allergic Rhinitis, Sinusitis, Other - Past Surgical History Additional Surgical History: None - Alcohol/Substance Use Hx Alcohol Use: No - Smoking History Smoking history: Current every day smoker Aproximately how many cigarettes per day: 10 Home Medications - Allergies Allergies/Adverse Reactions: Allergies Allergy/AdvReac Type Severity Reaction Status Date / Time No Known Allergies Allergy Verified 03/20/16 19:21 - Home Medications Home Medications: Ambulatory Orders Ibuprofen [Motrin -] 600 mg PO TID PRN #20 tablet 03/20/16 Ergocalciferol [Vitamin D2] 50,000 unit PO WEEKLY 08/27/17 Rabeprazole Sodium [Aciphex] 20 mg PO PRN PRN 08/27/17 Family Disease History - Family Disease History Family Disease History: Other: Father (: 62: stomach cancer), Mother (Alive : 56: CVA / thyroid d/o), Brother (1 H), Sister (2, 1 with obesity s/p gastric bypass), Son (2: healthy), Daughter (1, healthy) Other Family History: maternal GM: some form of cancer Review of Systems - Review of Systems Constitutional: reports: Weakness Eyes: reports: No Symptoms HENT: reports: No Symptoms Neck: reports: No Symptoms Cardiovascular: reports: No Symptoms Respiratory: reports: No Symptoms Gastrointestinal: reports: No Symptoms Genitourinary: reports: No Symptoms Breasts: reports: No Symptoms Reported Musculoskeletal: reports: No Symptoms Integumentary: reports: No Symptoms Neurological: reports: No Symptoms Endocrine: reports: No Symptoms Hematology/Lymphatic: reports: No Symptoms 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
[2017-08-29 08:00] LABS: BASO % 0.3 % (0-2.0); EOS % 2.9 % (0-4.5); HEMATOCRIT 38.8 % (32.4-45.2); HEMOGLOBIN 12.9 GM/dL (10.7-15.3); LYMPH % 24.6 % (8-40); MCH 30.6 pg (25.7-33.7); MCHC 33.2 g/dl (32.0-36.0); MEAN PLT VOLUME 9.7 fl (7.5-11.1); MONO % 6.2 % (3.8-10.2); PLATELET COUNT 122 K/MM3 (134-434); RBC 4.22 M/mm3 (3.60-5.2); RDW 13.4 % (11.6-15.6); WHITE BLOOD COUNT 10.6 K/mm3 (4.0-10.0)
[2017-08-29 08:02] LABS: CHLORIDE 104 mmol/L (98-107); POTASSIUM 3.7 mmol/L (3.5-5.1); SODIUM 138 mmol/L (136-145)
[2017-08-29 08:13] LABS: ALBUMIN 3.5 g/dl (3.4-5.0); ALK PHOS 75 U/L (45-117); ANION GAP 7 (8-16); BILIRUBIN,DIRECT < 0.2 mg/dL (0.0-0.2); BILIRUBIN,TOTAL 0.4 mg/dL (0.2-1.0); BLOOD UREA NITROGEN 7 mg/dL (7-18); CALCIUM 8.1 mg/dL (8.5-10.1); CO2 27 mmol/L (21-32); CREATININE 0.6 mg/dL (0.55-1.02); GLUCOSE,RANDOM 99 mg/dL (74-106); SGOT/AST 14 U/L (15-37); SGPT/ALT 19 U/L (12-78)
[2017-08-29] MEDS ORDERED: PT OWN MED DRAWER 7, Y5N ONE (09:33)
[2017-08-29] MEDS: CEFTRIAXONE 1 G/50 ML PREMIX 50 ML IVPB SCH (09:36)
--- NOTE | 2017-08-29 10:09 | CON.ID ---
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: Alzheimer's, CVA, Dementia, Migraine, Multiple Sclerosis, Peripheral Neuropathy, Parkinson's, Seizure, Syncope, TIA, Vertigo, Other Cardio/Vascular: No: AFIB, Aneurysm, Aortic Insufficiency, Aortic Stenosis, CAD , CHF, Deep Vein Thrombosis, HTN, Hyperlipdemia, OK, Mitral Insufficiency, Mitral Stenosis, Murmur, Pulmonary Hypertension, Other Pulmonary: No: Asthma, Bronchitis, Cancer, COPD, O2 Dependent, Pneumonia, Previously Intubated, Pulmonary Embolus, Pulmonary Fibrosis, Sleep Apnea, Other Gastrointestinal: Yes: Diverticulosis (noted on CT scan 2016) Hepatobiliary: Yes: Cholelithiasis Renal/: No: Renal Failure, Renal Inusuff, BPH, Cancer, Hematuria, Hemodialysis , Neurogenic Bladder, Renal Calculi, UTI, Other ...LMP: 08/11/17 ...: No Infectious Disease: Yes: Other (history of UTI, none recently). No: AIDS, C- Diff, Herpes Zoster, HIV, MRSA, STD's, Tuberculosis, VREF Psych: No: Addictions, Anxiety, Bipolar, Depression, Panic, Psychosis, Schizophrenia, Other Musculoskeletal: No: Bursitis, Chronic low back pain, Hemiparesis, Hemiplegia, Osteoarthritis, Paraplegia, Other Rheumatology: No: Fibromyalgia, Gout, Lupus, Rheumatoid Arthritis, Sarcoidosis, Vasculitis, Other ENT: No: Allergic Rhinitis, Sinusitis, Other - Past Surgical History Past Surgical History: Yes: None Additional Surgical History: None. , - Alcohol/Substance Use Hx Alcohol Use: No - Smoking History Smoking history: Current every day smoker Have you smoked in the past 12 months: Yes Aproximately how many cigarettes per day: 10 - Social History Usual Living Arrangement: With Child ADL: Independent Occupation: [employer] History of Recent Travel: No Home Medications - Allergies Allergies/Adverse Reactions: Allergies Allergy/AdvReac Type Severity Reaction Status Date / Time No Known Allergies Allergy Verified 03/20/16 19:21 - Home Medications Home Medications: Ambulatory Orders Ibuprofen [Motrin -] 600 mg PO TID PRN #20 tablet 03/20/16 Ergocalciferol [Vitamin D2] 50,000 unit PO WEEKLY 08/27/17 Rabeprazole Sodium [Aciphex] 20 mg PO PRN PRN 08/27/17 Family Disease History - Family Disease History Family Disease History: Other: Father (: 62: stomach cancer), Mother (Alive : 56: CVA / thyroid d/o), Brother (1 H), Sister (2, 1 with obesity s/p gastric bypass), Son (2: healthy), Daughter (1, healthy) Other Family History: maternal GM: some form of cancer Review of Systems - Review of Systems Constitutional: reports: Fever, Night Sweats Eyes: reports: No Symptoms HENT: reports: Other (sore throat) Neck: reports: No Symptoms Cardiovascular: reports: No Symptoms. denies: Chest Pain Respiratory: reports: No Symptoms. denies: Cough Gastrointestinal: reports: Vomiting. denies: Constipation, Diarrhea Genitourinary: reports: Flank Pain Breasts: reports: No Symptoms Reported Musculoskeletal: reports: No Symptoms Integumentary: reports: No Symptoms Neurological: reports: No Symptoms Physical Exam Vital Signs: Vital Signs Temperature 99 F 08/29/17 06:57 Pulse Rate 89 08/29/17 06:57 Respiratory Rate 20 08/29/17 06:57 Blood Pressure 124/75 08/29/17 06:57 O2 Sat by Pulse Oximetry (%) 98 08/28/17 21:00 Constitutional: Yes: Well Nourished, No Distress, Calm Eyes: Yes: Conjunctiva Clear HENT: Yes: Atraumatic, Normocephalic. No: Pharyngeal Erythema, Thrush, Tonsillar Exudate Neck: Yes: Supple, Trachea Midline Cardiovascular: Yes: Regular Rate and Rhythm Respiratory: Yes: Regular, CTA Bilaterally Gastrointestinal: Yes: Normal Bowel Sounds, Soft Renal/: Yes: CVA Tenderness - Left. No: Bladder Distention Edema: No Integumentary: No: Rash Neurological: Yes: Alert, Oriented Psychiatric: Yes: Alert, Oriented Labs: CBC, BMP 08/29/17 06:00 08/29/17 06:00 Microbiology 08/28/17 05:43 Blood - Peripheral Venous Blood Culture - Preliminary NO GROWTH OBTAINED AFTER 24 HOURS, INCUBATION TO CONTINUE FOR 4 DAYS. 08/28/17 05:42 Blood - Peripheral Venous Blood Culture - Preliminary NO GROWTH OBTAINED AFTER 24 HOURS, INCUBATION TO CONTINUE FOR 4 DAYS. 08/28/17 05:30 Nasopharyngeal Swab Influenza Types A,B Antigen (ZABRINA) - Preliminary 08/28/17 05:30 Nasopharyngeal Swab - Preliminary urine culture pending Imaging - Results Chest X-ray: Report Reviewed Cat Scan: Report Reviewed Ultrasound: Report Reviewed Problem List - Problems (1) Pyelonephritis Code(s): N12 - TUBULO-INTERSTITIAL NEPHRITIS, NOT SPCF ACUTE OR CHRONIC (2) Ovarian cyst, bilateral Code(s): N83.201 - UNSPECIFIED OVARIAN CYST, RIGHT SIDE; N83.202 - UNSPECIFIED OVARIAN CYST, LEFT SIDE Assessment/Plan improving on ceftriaxone continue antibiotics continue IVF lowgrade temp overnight suspect will be able switch to po antibiotics in am tolerating food now
--- NOTE | 2017-08-29 16:04 | PN ---
Physical Exam: SUBJECTIVE: Patient seen and examined at bedside. No acute complaints currently. States that she is tired but does not have CP, SOB, nausea, vomiting , diarrhea. States that she occasionally still has lower abdominal pain, but none currently. OBJECTIVE: Vital Signs Period Temp Pulse Resp BP Sys/Jarvis Pulse Ox Last 24 Hr 98.6 F-100.4 F 89-114 18-20 103-124/60-76 98-98 GENERAL: The patient is awake, alert, and fully oriented, in no acute distress. HEAD: Normal with no signs of trauma. LUNGS: Breath sounds equal, clear to auscultation bilaterally, no wheezes, no crackles, no accessory muscle use. HEART: mildly tachycardic, S1, S2 without murmur, rub or gallop. ABDOMEN: overweight, soft, mildly tender to palpation in the lower quadrants, nondistended, normoactive bowel sounds, no guarding, no rebound, no hepatosplenomegaly, no masses. EXTREMITIES: 2+ pulses, warm, well-perfused, no edema. NEUROLOGICAL: Cranial nerves II through XII grossly intact. Normal speech, gait not observed. PSYCH: Normal mood, normal affect. SKIN: Warm, dry, normal turgor, no rashes or lesions noted Laboratory Results - last 24 hr 08/29/17 08/29/17 06:00 06:00 WBC 10.6 H RBC 4.22 Hgb 12.9 Hct 38.8 MCV 92.0 MCH 30.6 MCHC 33.2 RDW 13.4 Plt Count 122 L MPV 9.7 Neutrophils % 66.0 Lymphocytes % 24.6 Monocytes % 6.2 Eosinophils % 2.9 Basophils % 0.3 Sodium 138 Potassium 3.7 Chloride 104 Carbon Dioxide 27 Anion Gap 7 L BUN 7 Creatinine 0.6 Random Glucose 99 Calcium 8.1 L Total Bilirubin 0.4 D Direct Bilirubin < 0.2 AST 14 L ALT 19 Alkaline Phosphatase 75 Total Protein 7.0 Albumin 3.5 Active Medications Generic Name Dose Route Start Last Admin Trade Name Freq PRN Reason Stop Dose Admin Acetaminophen 650 mg 08/28/17 05:24 08/28/17 18:05 Tylenol - PO 650 mg Q6H PRN Administration FEVER Dextrose/Sodium Chloride 1,000 mls @ 100 mls/hr 08/28/17 05:30 08/28/17 18:07 D5-1/2ns - IV 100 mls/hr ASDIR CAMPBELL Administration CEFTRIAXONE 1 G/50 ML PREMIX 50 mls @ 100 mls/hr 08/28/17 10:00 08/29/17 09: 36 Ceftriaxone 1 Gm-D5w Bag IVPB 100 mls/hr DAILY CAMPBELL Administration Morphine Sulfate 2 mg 08/28/17 05:23 08/28/17 14:05 Morphine Injection - IVPUSH 2 mg Q4H PRN Administration PAIN LEVEL 6-10 Ondansetron HCl 4 mg 08/28/17 05:23 Zofran Injection IVPUSH Q6H PRN NAUSEA IMAGING: US PELVIS: Bilateral complex ovarian cysts with no evidence of torsion or acute pathology. Please see above discussion. CT ABD/PEL: Prominent pancreatic head is again seen measuring 4 cm in AP dimension without surrounding diaphragmatic changes to suggest acute appendicitis. Correlation with MRI of the pancreas is suggested for better evaluation. Complex left adnexal cyst measuring 4.7 x 4.3 cm and a small simple cyst/dominant follicle in the right ovary for which correlation with pelvis ultrasound is needed. A preliminary report was forwarded by the [facility] service CXR: No acute chest pathology. No comparison studies MRCP: ASSESSMENT/PLAN: 31 year old female with a past medical history of hydronephrosis admitted to [facility] for the treatment of sepsis 2/2 complex ovarian cysts and found to incidentally have enlarged pancreatic head. #Sepsis 2/2 Ovarian Cyst: improving, patient afebrile today but was febrile yesterday -patient is not in as much pain as she was yesterday -continue ceftriaxone day 2 -continue D5 0.5 NS @ 100 -CT showed enlarged pancreatic head -ID consult appreciated, Dr. Martin -will switch to PO antibiotics in AM #Enlarged Pancreatic Head: found on imaging -MRCP performed, awaiting read -GI consult Dr. Plascencia appreciated -may need upper endoscopic ultrasound as an outpatient for further evaluation #FEN -continue D5 1/2 NS @ 100 #Prophylaxis SCDs #Disposition -continue to monitor on med-surg Visit type - Emergency Visit Emergency Visit: No - New Patient This patient is new to me today: Yes Date on this admission: 08/29/17 - Critical Care Critical Care patient: No
[2017-08-29] MEDS: DEXTROSE 5%-0.45% SALINE 1,000 ML IV SCH (16:14)
--- NOTE | 2017-08-29 18:27 | PN ---
Teaching Attending Note Name of Resident: Charles Haskins ATTENDING PHYSICIAN STATEMENT I saw and evaluated the patient. I reviewed the resident's note and discussed the case with the resident. I agree with the resident's findings and plan as documented. SUBJECTIVE: Patient is comfortable with no acute distress. Tmax of 100.4 last night with HR of 110's OBJECTIVE: Vital Signs Temperature 98.3 F 08/29/17 16:12 Pulse Rate 84 08/29/17 16:12 Respiratory Rate 16 08/29/17 16:12 Blood Pressure 134/70 08/29/17 16:12 O2 Sat by Pulse Oximetry (%) 98 08/28/17 21:00 CBCD WBC 10.6 K/mm3 (4.0-10.0) H 08/29/17 06:00 RBC 4.22 M/mm3 (3.60-5.2) 08/29/17 06:00 Hgb 12.9 GM/dL (10.7-15.3) 08/29/17 06:00 Hct 38.8 % (32.4-45.2) 08/29/17 06:00 MCV 92.0 fl (80-96) 08/29/17 06:00 MCHC 33.2 g/dl (32.0-36.0) 08/29/17 06:00 RDW 13.4 % (11.6-15.6) 08/29/17 06:00 Plt Count 122 K/MM3 (134-434) L 08/29/17 06:00 MPV 9.7 fl (7.5-11.1) 08/29/17 06:00 CMP Sodium 138 mmol/L (136-145) 08/29/17 06:00 Potassium 3.7 mmol/L (3.5-5.1) 08/29/17 06:00 Chloride 104 mmol/L (98-107) 08/29/17 06:00 Carbon Dioxide 27 mmol/L (21-32) 08/29/17 06:00 Anion Gap 7 (8-16) L 08/29/17 06:00 BUN 7 mg/dL (7-18) 08/29/17 06:00 Creatinine 0.6 mg/dL (0.55-1.02) 08/29/17 06:00 Creat Clearance w eGFR > 60 (>60) 08/27/17 23:33 Random Glucose 99 mg/dL (74-106) 08/29/17 06:00 Calcium 8.1 mg/dL (8.5-10.1) L 08/29/17 06:00 Total Bilirubin 0.4 mg/dL (0.2-1.0) D 08/29/17 06:00 AST 14 U/L (15-37) L 08/29/17 06:00 ALT 19 U/L (12-78) 08/29/17 06:00 Alkaline Phosphatase 75 U/L (45-117) 08/29/17 06:00 Total Protein 7.0 g/dl (6.4-8.2) 08/29/17 06:00 Albumin 3.5 g/dl (3.4-5.0) 08/29/17 06:00 Current Medications Generic Name Dose Route Start Last Admin Trade Name Freq PRN Reason Stop Dose Admin Acetaminophen 650 mg 08/28/17 05:24 08/28/17 18:05 Tylenol - PO 650 mg Q6H PRN Administration FEVER Dextrose/Sodium Chloride 1,000 mls @ 100 mls/hr 08/28/17 05:30 08/29/17 16:14 D5-1/2ns - IV 100 mls/hr ASDIR CAMPBELL Administration CEFTRIAXONE 1 G/50 ML PREMIX 50 mls @ 100 mls/hr 08/28/17 10:00 08/29/17 09: 36 Ceftriaxone 1 Gm-D5w Bag IVPB 100 mls/hr DAILY CAMPBELL Administration Morphine Sulfate 2 mg 08/28/17 05:23 08/28/17 14:05 Morphine Injection - IVPUSH 2 mg Q4H PRN Administration PAIN LEVEL 6-10 Ondansetron HCl 4 mg 08/28/17 05:23 Zofran Injection IVPUSH Q6H PRN NAUSEA Home Medications Medication Instructions Recorded Ibuprofen [Motrin -] 600 mg PO TID PRN #20 tablet 03/20/16 Ergocalciferol [Vitamin D2] 50,000 unit PO WEEKLY 08/27/17 Rabeprazole Sodium [Aciphex] 20 mg PO PRN PRN 08/27/17 PE: per resident's note Microbiology 08/27/17 20:44 Urine - Urine Clean Catch Urine Culture - Final Contaminated: Please Repeat 08/28/17 05:43 Blood - Peripheral Venous Blood Culture - Preliminary NO GROWTH OBTAINED AFTER 24 HOURS, INCUBATION TO CONTINUE FOR 4 DAYS. 08/28/17 05:42 Blood - Peripheral Venous Blood Culture - Preliminary NO GROWTH OBTAINED AFTER 24 HOURS, INCUBATION TO CONTINUE FOR 4 DAYS. 08/28/17 05:30 Nasopharyngeal Swab Influenza Types A,B Antigen (ZABRINA) - Preliminary 08/28/17 05:30 Nasopharyngeal Swab - Preliminary Transabdominal pelvic ultrasound: IMPRESSION: Bilateral hemorrhagic cysts without torsion or free fluid. Endometriomas are considered. CT abdomen and pelvis : IMPRESSION: Gallstones. positive for pancreatic mass of 4cm 4.6 cm septated left ovarian cyst trace free fluid may be further evaluated with pelvic ultrasound. MRCP: normal variant appearance, no pancreatic dilatation. ASSESSMENT AND PLAN: 31 y/o woman with a PMHx of Hydronephrosis. Admitted for Sepsis, Hemorrhagic Cysts, possible Pyelonephritis. # s/p Sepsis presented with Tmax of 102 and HR of 120, last night Tmax was 100.4 with HR of 110's , mproving on IV ceftriaxone continue ID on the case. Throat culture . Bcx , no growth so far and Uais contaminated , will repeat , follow Urine Cx. # Left flank pain with Fever and tachycardia with elevated WBC is trending down , acute Pyelonephritis responding to IV antibiotic Rocephin, continue for now. follow urine culture , if no further fever , follow with ID and possible dc in am # s/p MRCP for possible Pancreatic mass at the head of pancreas , as per MRCP is a normal variant , no dilatation. # B/l complex ovarian cyst, as per transvaginal US, as per OBGYn ;no further management for now but will need follow up for resolution of the cyst. Patient has her OBGYN, Also US was reported possible hemorrhagic cyst but cbc is stable. DVT prophylaxis: OOB,SCDs, hold Heparin secondary possible hemorrhagic cysts Possible discharge in am if stable, check wit ID prior to discharge
--- NOTE | 2017-08-29 20:27 | PN ---
GI Progress Note Subjective: No acute events No abdominal pain MRI revealed prominent pancreatic head without mass lesion, ? normal variant - Objective Vital Signs: Vital Signs Temperature 98.7 F 08/29/17 17:15 Pulse Rate 102 H 08/29/17 17:15 Respiratory Rate 20 08/29/17 17:15 Blood Pressure 129/95 08/29/17 17:15 O2 Sat by Pulse Oximetry (%) 98 08/28/17 21:00 Constitutional: Calm Eyes: No: Sclera Icterus Cardiovascular: Yes: Regular Rate and Rhythm Respiratory: Yes: CTA Bilaterally Gastrointestinal Inspection: No: Distention ...Auscultate: Yes: Normoactive Bowel Sounds ...Palpate: No: Hepatomegaly, Splenomegaly, Tenderness ...Percussion: No: Tympanitic Edema: No (No LE edema) Neurological: Yes: Alert, Oriented Labs: CBC, BMP 08/29/17 06:00 08/29/17 06:00 Hepatic Panel Total Bilirubin 0.4 mg/dL (0.2-1.0) D 08/29/17 06:00 Direct Bilirubin < 0.2 mg/dL (0.0-0.2) 08/29/17 06:00 AST 14 U/L (15-37) L 08/29/17 06:00 ALT 19 U/L (12-78) 08/29/17 06:00 Alkaline Phosphatase 75 U/L (45-117) 08/29/17 06:00 Albumin 3.5 g/dl (3.4-5.0) 08/29/17 06:00 Problem List - Problems (1) Pancreatic abnormality Assessment/Plan: MRI described prominent panc head as suspected normal variant Can follow-up as outpatient to arrange follow-up to discuss EUS Recall as needed Code(s): 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
[2017-08-30] MEDS: DEXTROSE 5%-0.45% SALINE 1,000 ML IV SCH (03:03)
[2017-08-30 07:51] LABS: HEMATOCRIT 41.4 % (32.4-45.2); HEMOGLOBIN 13.6 GM/dL (10.7-15.3); MCH 30.5 pg (25.7-33.7); MCHC 32.8 g/dl (32.0-36.0); MEAN CELL VOLUME 92.9 fl (80-96); MEAN PLT VOLUME 9.7 fl (7.5-11.1); PLATELET COUNT 140 K/MM3 (134-434); RBC 4.45 M/mm3 (3.60-5.2); RDW 13.2 % (11.6-15.6); WHITE BLOOD COUNT 8.6 K/mm3 (4.0-10.0)
[2017-08-30 08:08] LABS: CHLORIDE 105 mmol/L (98-107); POTASSIUM 3.5 mmol/L (3.5-5.1); SODIUM 141 mmol/L (136-145)
[2017-08-30 08:14] LABS: ANION GAP 12 (8-16); BLOOD UREA NITROGEN 4 mg/dL (7-18); CALCIUM 8.7 mg/dL (8.5-10.1); CO2 24 mmol/L (21-32); CREATININE 0.6 mg/dL (0.55-1.02); GLUCOSE,RANDOM 94 mg/dL (74-106); MAGNESIUM 2.4 mg/dL (1.8-2.4); PHOSPHOROUS 3.2 mg/dL (2.5-4.9)
[2017-08-30] MEDS ORDERED: POTASSIUM CHLORIDE TABS 20 MEQ TABLET.ER (FP) PO ONE (08:45)
--- NOTE | 2017-08-30 09:35 | PN ---
Progress Note (short form) - Note Progress Note: doing well no back pain feels well wants to go home no vomiting good appetitie day #3 abx sore throat resolved Vital Signs Period Temp Pulse Resp BP Sys/Jarvis Pulse Ox Last 24 Hr 98.2 F-99.2 F 84-102 16-20 112-134/70-95 99 cor-rrr lungs clear abd soft,nt ext no edema CBC, BMP 08/30/17 06:30 08/30/17 06:30 Microbiology 08/28/17 20:54 Throat Throat Culture - Preliminary Pending Organism 08/28/17 05:43 Blood - Peripheral Venous Blood Culture - Preliminary NO GROWTH OBTAINED AFTER 48 HOURS, INCUBATION TO CONTINUE FOR 3 DAYS. 08/28/17 05:42 Blood - Peripheral Venous Blood Culture - Preliminary NO GROWTH OBTAINED AFTER 48 HOURS, INCUBATION TO CONTINUE FOR 3 DAYS. 08/27/17 20:44 Urine - Urine Clean Catch Urine Culture - Final Contaminated: Please Repeat 08/28/17 05:30 Nasopharyngeal Swab Influenza Types A,B Antigen (ZABRINA) - Preliminary 08/28/17 05:30 Nasopharyngeal Swab - Preliminary a/p clinical pyelonephritis doing well can switch to po vantin or suprax for another week Problem List - Problems (1) Pyelonephritis Code(s): N12 - TUBULO-INTERSTITIAL NEPHRITIS, NOT SPCF ACUTE OR CHRONIC (2) Ovarian cyst, bilateral Code(s): N83.201 - UNSPECIFIED OVARIAN CYST, RIGHT SIDE; N83.202 - UNSPECIFIED OVARIAN CYST, LEFT SIDE
[2017-08-30] MEDS ORDERED: CEFPODOXIME PROXETIL 200 MG TABLET [NF] PO SCH (10:00)
[2017-08-30 14:21] VITALS: BP 105/62; PULSE 95; TEMP 98.1
--- NOTE | 2017-08-30 17:49 | DS ---
Physical Exam: SUBJECTIVE: Patient seen and examined at bedside. No acute complaints. Mild tenderness to palpation in the lower abdominal quadrants. OBJECTIVE: Vital Signs Period Temp Pulse Resp BP Sys/Jarvis Pulse Ox Last 24 Hr 98.1 F-99.2 F 90-95 18-20 105-120/62-77 99-99 PHYSICAL EXAM GENERAL: The patient is awake, alert, and fully oriented, in no acute distress. HEAD: Normal with no signs of trauma. LUNGS: Breath sounds equal, clear to auscultation bilaterally, no wheezes, no crackles, no accessory muscle use. HEART: regular rate and rhythm, S1, S2 without murmur, rub or gallop. ABDOMEN: overweight, soft, mildly tender to palpation in the lower quadrants, nondistended, normoactive bowel sounds, no guarding, no rebound, no hepatosplenomegaly, no masses. EXTREMITIES: 2+ pulses, warm, well-perfused, no edema. NEUROLOGICAL: Cranial nerves II through XII grossly intact. Normal speech, gait not observed. PSYCH: Normal mood, normal affect. SKIN: Warm, dry, normal turgor, no rashes or lesions noted LABS Laboratory Results - last 24 hr 08/30/17 08/30/17 06:30 06:30 WBC 8.6 RBC 4.45 Hgb 13.6 Hct 41.4 MCV 92.9 MCH 30.5 MCHC 32.8 RDW 13.2 Plt Count 140 MPV 9.7 Sodium 141 Potassium 3.5 Chloride 105 Carbon Dioxide 24 Anion Gap 12 BUN 4 L Creatinine 0.6 Random Glucose 94 Calcium 8.7 Phosphorus 3.2 Magnesium 2.4 Laboratory Last Values WBC 8.6 K/mm3 (4.0-10.0) 08/30/17 06:30 RBC 4.45 M/mm3 (3.60-5.2) 08/30/17 06:30 Hgb 13.6 GM/dL (10.7-15.3) 08/30/17 06:30 Hct 41.4 % (32.4-45.2) 08/30/17 06:30 MCV 92.9 fl (80-96) 08/30/17 06:30 MCH 30.5 pg (25.7-33.7) 08/30/17 06:30 MCHC 32.8 g/dl (32.0-36.0) 08/30/17 06:30 RDW 13.2 % (11.6-15.6) 08/30/17 06:30 Plt Count 140 K/MM3 (134-434) 08/30/17 06:30 MPV 9.7 fl (7.5-11.1) 08/30/17 06:30 Neutrophils % 66.0 % (42.8-82.8) 08/29/17 06:00 Lymphocytes % 24.6 % (8-40) 08/29/17 06:00 Monocytes % 6.2 % (3.8-10.2) 08/29/17 06:00 Eosinophils % 2.9 % (0-4.5) 08/29/17 06:00 Basophils % 0.3 % (0-2.0) 08/29/17 06:00 Sodium 141 mmol/L (136-145) 08/30/17 06:30 Potassium 3.5 mmol/L (3.5-5.1) 08/30/17 06:30 Chloride 105 mmol/L (98-107) 08/30/17 06:30 Carbon Dioxide 24 mmol/L (21-32) 08/30/17 06:30 Anion Gap 12 (8-16) 08/30/17 06:30 BUN 4 mg/dL (7-18) L 08/30/17 06:30 Creatinine 0.6 mg/dL (0.55-1.02) 08/30/17 06:30 Creat Clearance w eGFR > 60 (>60) 08/27/17 23:33 Random Glucose 94 mg/dL (74-106) 08/30/17 06:30 Lactic Acid 0.6 mmol/L (0.0-2.0) 08/28/17 04:14 Calcium 8.7 mg/dL (8.5-10.1) 08/30/17 06:30 Phosphorus 3.2 mg/dL (2.5-4.9) 08/30/17 06:30 Magnesium 2.4 mg/dL (1.8-2.4) 08/30/17 06:30 Total Bilirubin 0.4 mg/dL (0.2-1.0) D 08/29/17 06:00 Direct Bilirubin < 0.2 mg/dL (0.0-0.2) 08/29/17 06:00 AST 14 U/L (15-37) L 08/29/17 06:00 ALT 19 U/L (12-78) 08/29/17 06:00 Alkaline Phosphatase 75 U/L (45-117) 08/29/17 06:00 C-Reactive Protein 3.7 MG/DL (0.00-0.3) H 08/27/17 23:33 Total Protein 7.0 g/dl (6.4-8.2) 08/29/17 06:00 Albumin 3.5 g/dl (3.4-5.0) 08/29/17 06:00 Urine Color Ltyellow 08/27/17 20:44 Urine Appearance Slcloudy 08/27/17 20:44 Urine pH 7.0 (5.0-8.0) 08/27/17 20:44 Ur Specific [place] 1.018 (1.001-1.035) 08/27/17 20:44 Urine Protein Negative (NEGATIVE) 08/27/17 20:44 Urine Glucose (UA) Negative (NEGATIVE) 08/27/17 20:44 Urine Ketones Negative (NEGATIVE) 08/27/17 20:44 Urine Blood 1+ (NEGATIVE) H 08/27/17 20:44 Urine Nitrite Negative (NEGATIVE) 08/27/17 20:44 Urine Bilirubin Negative (NEGATIVE) 08/27/17 20:44 Urine Urobilinogen 2.0 mg/dL (0.2-1.0) H 08/27/17 20:44 Ur Leukocyte Esterase Trace (NEGATIVE) 08/27/17 20:44 Urine WBC (Auto) 1 /hpf (3-5) 08/27/17 20:44 Urine RBC (Auto) 6 /hpf (0-3) 08/27/17 20:44 Ur Epithelial Cells Few /HPF (FEW) 08/27/17 20:44 Urine Bacteria Rare /hpf (NONE SEEN) 08/27/17 20:44 Urine HCG, Qual Negative 08/27/17 20:44 US PELVIS: Bilateral complex ovarian cysts with no evidence of torsion or acute pathology. CT ABD/PEL: Prominent pancreatic head is again seen measuring 4 cm in AP dimension without surrounding diaphragmatic changes to suggest acute appendicitis. Correlation with MRI of the pancreas is suggested for better evaluation. Complex left adnexal cyst measuring 4.7 x 4.3 cm and a small simple cyst/dominant follicle in the right ovary for which correlation with pelvis ultrasound is needed. CXR: No acute chest pathology. No comparison studies MRCP: Cholelithiasis with no MRI evidence of cholecystitis. No choledocholithiasis or pancreaticobiliary ductal dilatation. Prominent pancreatic head with no abnormal signal, enhancement or restricted diffusion likely normal variant appearance. No pancreatic ductal dilatation seen. Simple right renal cysts. Partially imaged not characterized 3.7 cm left adnexal cystic structure. This was reported on ultrasound of August 28, 2017. Microbiology 08/28/17 05:30 Nasopharyngeal Swab Influenza Types A,B Antigen (ZABRINA) - Preliminary 08/28/17 05:30 Nasopharyngeal Swab - Preliminary 08/28/17 20:54 Throat Throat Culture - Preliminary Pending Organism 08/28/17 05:43 Blood - Peripheral Venous Blood Culture - Preliminary NO GROWTH OBTAINED AFTER 48 HOURS, INCUBATION TO CONTINUE FOR 3 DAYS. 08/28/17 05:42 Blood - Peripheral Venous Blood Culture - Preliminary NO GROWTH OBTAINED AFTER 48 HOURS, INCUBATION TO CONTINUE FOR 3 DAYS. 08/27/17 20:44 Urine - Urine Clean Catch Urine Culture - Final Contaminated: Please Repeat HOSPITAL COURSE: Date of Admission:08/28/17 31 year old female with a history of hydronephrosis arrived to the ED complaining severe flank pain radiating to her left lower abdomen/Hip, fever, and chills. Patient reported having nausea, vomiting, generalized malaise and weakness. In the ED, UA was negative. CT abdomen pelvis showed prominent pancreatic head and complex L adnexal cyst. US pelvis showed b/l complex cysts. Patient was admitted for the treatment of sepsis secondary to pyelonephritis. Blood cultures were drawn (returned negative). ID was consulted and Abx were started (cefriaxone). GI was also consulted for evaluation of pancreatic head. MRCP was performed that showed cholelithiasis without pancreatic duct dilation. again showed prominent pancreatic head. Over the course of 2 days, patient clinically improved. She was discharged on oral Abx and sent to F/u with GI for the pancreatic head. Date of Discharge: 08/30/17 Minutes to complete discharge: 35 Discharge Summary Reason For Visit: CYST OF OVARY, PAIN Condition: Improved - Instructions Diet, Activity, Other Instructions: You were treated in the hospital for severe infection involving your kidneys, for which you completed a course of IV antibiotics. You will need to take oral antibiotics for another week at home. As a part of your hospital workup for abdominal pain, you had done an abdominal CT which showed enlarged pancreas, a gallbladder stone and a complex left adnexal cyst (probably ovarian). You then had an MRI (MRCP) done to further investigate these findings. Your imaging and case was reviewed by Gastroenterology, who determined that the enlarged head of pancreas is likely just a normal variant, but recommended outpatient follow up to make sure nothing changes as you might need an endoscopic Ultra sound done . OBGYN reviewed your case as well and recommended outpatient follow up for the cyst. Medications: -Please take Vantin (Cefpedoxime) 200mg by mouth, two times a day, for 7 days -Continue your home medications as before. Referrals -Please make an appointment with your primary care physician within 1 week of discharge. If you don't have one, please follow up with us at [address] [place] [address] -Please make an appointment with your OB/Retail Support Manager within 1 week of discharge -Please make an appointment with the sap analyst within 1 month of discharge to discuss the results of your MRI. If you experience severe fevers, chills, chest pain, shortness of breath, nausea , vomiting, diarrhea, please return to the emergency room. Referrals: Amos Guadalupe MD [Staff Physician] - 1 Week Bryan Gonzalez MD [Staff Physician] - 1 Month Disposition: HOME - Home Medications Comprehensive Discharge Medication List: Ambulatory Orders Ergocalciferol [Vitamin D2] 50,000 unit PO WEEKLY 08/27/17 Rabeprazole Sodium [Aciphex] 20 mg PO PRN PRN 08/27/17 Cefpodoxime Proxetil [Vantin -] 200 mg PO BID #14 tablet 08/30/17 This patient is new to me today: No Emergency Visit: No Critical Care patient: No - Discharge Referral Referred to [facility] Med P.C.: No
--- NOTE | 2017-08-30 20:08 | PN ---
Teaching Attending Note Name of Resident: Charles Haskins ATTENDING PHYSICIAN STATEMENT I saw and evaluated the patient. I reviewed the resident's note and discussed the case with the resident. I agree with the resident's findings and plan as documented. SUBJECTIVE: No fever or chills, felt great today, no abd pain, no flank pain, OBJECTIVE: NA d Cv: RRr Lungs :CTAB ext: no edema Abd: soft, TTP in suprapubic area, no CVA tenderness ASSESSMENT AND PLAN: 31 y/o woman who was admitted for pyelonephritis - pyelonephritis : improved , no leukocytosis . blood cx neg to date. switch to vantin , x 1 week - enlarged pancreatic head. f/u as out pt for EUS. she was instructed to do so - complex adnexial cysts . f/u with [facility] . she is aware dc home
== END 2017-08-30 15:05 | disposition home or self-care (01) | DRG 720 ==
LOC: JER 20:22 → JERBED 08-28 03:59 → J8W 08-28 15:15
PROVIDERS: ADMIT Internal Medicine; ATTEND Internal Medicine
DX: A41.9 Sepsis, unspecified organism (principal); K86.89 Other specified diseases of pancreas; N83.8 Other noninflammatory disorders of ovary, fallopian tube and broad ligament; N12 Tubulo-interstitial nephritis, not specified as acute or chronic; Z85.028 Personal history of other malignant neoplasm of stomach; F17.210 Nicotine dependence, cigarettes, uncomplicated; K80.80 Other cholelithiasis without obstruction
CPT/HCPCS: 36415; 71046-TC-FY; 72193-TC; 74160-TC; 74182-TC; 76830-TC; 80048; 80053; 80076; 81003; 81015; 83605; 83735; 84100; 84703; 85025; 85027; 86140; 87040; 87070; 87086; 87491; 87591; 87804; 93005; 93010; 99285-25

== ENCOUNTER 2018-01-12 12:46 | Emergency (ER) | payer SELFPAY ==
[2018-01-12 12:59] VITALS: BP 122/72; PULSE 113; BMI 29.5
[2018-01-12] MEDS ORDERED: ACETAMINOPHEN 500 MG TABLET (FP) PO ONE (13:16)
[2018-01-12] MEDS ORDERED: ONDANSETRON 4 MG/2 ML VIAL IVPB ONE (13:16)
--- NOTE | 2018-01-12 13:24 | PDOC ---
History of Present Illness - General Chief Complaint: Nausea/Vomiting Stated Complaint: NAUSEA/VOMITING Time Seen by Provider: 01/12/18 13:08 History Source: Patient Exam Limitations: No Limitations - History of Present Illness Travel History: No Initial Comments: 01/12/18 13:17 32-year-old woman past medical history of hydronephrosis and pyelonephritis who presents emergency Department with left flank pain for 2 days. Patient states she's been checked her temperature at home was at a Temperature of 103.2 Orally. She Was Taken Tylenol [id number] Help Control Her Fevers with Tylenol with Minimal Relief of Pain. Patient states she's been experiencing nausea and vomiting for the past 2 days also. She denies any dysuria, hematuria , dysuria but states that her urine is more concentrated than usual. Past History - Past Medical History Allergies/Adverse Reactions: Allergies Allergy/AdvReac Type Severity Reaction Status Date / Time No Known Allergies Allergy Verified 01/12/18 12:56 Home Medications: Ambulatory Orders Acetaminophen [Tylenol -] 1,000 mg PO Q6H 01/12/18 Cephalexin Monohydrate [Keflex -] 500 mg PO Q8H #42 capsule 01/12/18 Cancer: Yes (GASTRITIS) COPD: No - Reproductive History (#): 3 Para: 3 - Immunization History Immunization Up to Date: No - Suicide/Smoking/Psychosocial Hx Smoking Status: Yes Smoking History: Never smoked Have you smoked in the past 12 months: Yes Number of Cigarettes Smoked Daily: 10 Information on smoking cessation initiated: No 'Breaking Loose' booklet given: 08/28/17 Hx Alcohol Use: No Drug/Substance Use Hx: No Substance Use Type: None Hx Substance Use Treatment: No Review of Systems - Review of Systems Able to Perform ROS?: Yes Is the patient limited Estonian proficient: No Constitutional: Yes: See HPI HEENTM: No: Symptoms Reported Respiratory: No: Symptoms reported Cardiac (ROS): No: Symptoms Reported ABD/GI: Yes: See HPI : Yes: See HPI Musculoskeletal: No: Symptoms Reported Integumentary: No: Symptoms Reported Neurological: No: Symptoms reported Endocrine: No: Symptoms Reported Hematologic/Lymphatic: No: Symptoms Reported *Physical Exam - Vital Signs Last Vital Signs Temp Pulse Resp BP Pulse Ox 102.7 F H 113 H 18 122/72 99 01/12/18 12:57 01/12/18 12:57 01/12/18 12:57 01/12/18 12:57 01/12/18 12:57 - Physical Exam General Appearance: Yes: Appropriately Dressed. No: Apparent Distress HEENT: positive: Normal ENT Inspection Neck: positive: Trachea midline, Supple Respiratory/Chest: positive: Lungs Clear, Normal Breath Sounds. negative: Respiratory Distress, Accessory Muscle Use Cardiovascular: positive: Regular Rhythm, Regular Rate. negative: Murmur Gastrointestinal/Abdominal: positive: Normal Bowel Sounds, Soft. negative: Tender Musculoskeletal: positive: Normal Inspection, CVA Tenderness (L) Extremity: positive: Normal Inspection Integumentary: positive: Normal Color, Dry, Warm Neurologic: positive: Alert, Normal Response ED Treatment Course - LABORATORY CBC & Chemistry Diagram: 01/12/18 13:35 01/12/18 13:35 - RADIOLOGY Radiology Studies Ordered: Category Date Time Status SPIRAL- RENAL-STONE CT [CT] Stat CT Scan 01/12/18 13:16 Ordered Medical Decision Making - Medical Decision Making 01/12/18 13:21 A/P: 32-year-old woman past medical history of hydronephrosis pyelonephritis with fevers and left flank pain for 2 days Left CVA tenderness Abdomen soft nontender nondistended Patient likely with pyelonephritis. I will obtain a CAT scan to rule out infected stone. UA, labs, Tylenol, Zofran, IV fluids, reassess 01/12/18 14:57 CT as read by : Splenomegaly. Left lower lobe lung nodule for which surveillance is recommended. No hydronephrosis or nephrolithiasis noted. The collecting system suspected on the left. Given CT results this is likely pyelonephritis as opposed to infected stone. We' ll treat the patient with Keflex 500 mg 3 times a day for the next 2 weeks. I discussed the physical exam findings, ancillary test results and final diagnoses with the patient. I answered all of the patient's questions. The patient was satisfied with the care received and felt comfortable with the discharge plan and treatment plan. The patient will call her doctor within 72 hours to arrange follow-up and will return to the Emergency Department with any new, persistent or worsening symptoms. *DC/Admit/Observation/Transfer Diagnosis at time of Disposition: Pyelonephritis - Discharge Dispostion Disposition: HOME Condition at time of disposition: Fair Decision to Admit order: No - Prescriptions Prescriptions: Cephalexin Monohydrate [Keflex -] 500 mg PO Q8H #42 capsule - Referrals Referrals: Lillian Hutchinson MD [Primary Care Provider] - Figueroa Osullivan MD [Staff Physician] - - Patient Instructions Printed Discharge Instructions: DI for Kidney Infection Additional Instructions: Your CAT scan showed a 3 mm nodule in the base of your left lung. No treatment is needed for this at this time but you have to follow-up with her primary doctor for reevaluation and repeat imaging. Rest, drink lots of fluids: Teas, water, soups Avoid contact with others until fevers and symptoms resolved Lots of handwashing and good hygiene Continue [id number] medications for symptomatic relief Tylenol or Motrin for fever and pain Continue all of antibiotics until completed Followup with private physician in one week for repeat urinalysis/reevaluation Return to emergency department for worsened symptoms, fevers, dehydration - Post Discharge Activity Forms/Work/School Notes: Back to Work
[2018-01-12] MEDS ORDERED: ONDANSETRON 4 MG/2 ML VIAL ONE (13:28)
[2018-01-12] MEDS ORDERED: ACETAMINOPHEN 325 MG TABLET (FP) ONE (13:28)
[2018-01-12 13:31] LABS: URINE APPEARANCE CLOUDY; URINE BILIRUBIN NEGATIVE (<2.0 mg/dL); URINE COLOR YELLOW; URINE GLUCOSE (UA) NEGATIVE (NEGATIVE); URINE KETONE 1+ (NEGATIVE); URINE NITRITE POSITIVE (NEGATIVE); URINE UROBILINOGEN NEGATIVE mg/dL (0.2-1.0)
[2018-01-12] MEDS ORDERED: SODIUM CHLORIDE 1,000 ML IV STA (13:31)
[2018-01-12 13:35] LABS: URINE LEUK ESTERASE 3+ (NEGATIVE); URINE PROTEIN 2+ (NEGATIVE)
[2018-01-12 13:37] LABS: HCG,QUALITATIVE URINE NEGATIVE
[2018-01-12 13:40] LABS: EPI CELLS FEW /HPF (FEW); URINE BACTERIA RARE /hpf (NONE SEEN); URINE MUCUS FEW; YEAST RARE
[2018-01-12 13:45] LABS: EOS % 0.1 % (0-4.5); HEMATOCRIT 39.9 % (32.4-45.2); HEMOGLOBIN 13.5 GM/dL (10.7-15.3); LYMPH % 12.4 % (8-40); MCHC 33.8 g/dl (32.0-36.0); MEAN CELL VOLUME 91.6 fl (80-96); MEAN PLT VOLUME 9.4 fl (7.5-11.1); MONO % 7.3 % (3.8-10.2); NEUT % 79.2 % (42.8-82.8); PLATELET COUNT 131 K/MM3 (134-434); RBC 4.36 M/mm3 (3.60-5.2); WHITE BLOOD COUNT 13.2 K/mm3 (4.0-10.0)
[2018-01-12] MEDS ORDERED: KETOROLAC TROMETHAMINE 30 MG/1 ML VIAL IVPUSH ONE (14:00)
[2018-01-12] MEDS ORDERED: KETOROLAC TROMETHAMINE 30 MG/1 ML VIAL ONE (14:01)
[2018-01-12 14:14] LABS: ALBUMIN 3.9 g/dl (3.4-5.0); ANION GAP 8 (8-16); BLOOD UREA NITROGEN 5 mg/dL (7-18); CALCIUM 8.6 mg/dL (8.5-10.1); CHLORIDE 103 mmol/L (98-107); CO2 27 mmol/L (21-32); GLUCOSE,RANDOM 95 mg/dL (74-106); POTASSIUM 3.5 mmol/L (3.5-5.1); SGOT/AST 16 U/L (15-37); SGPT/ALT 22 U/L (12-78); SODIUM 138 mmol/L (136-145)
[2018-01-12 14:16] LABS: BILIRUBIN,TOTAL 0.7 mg/dL (0.2-1.0); CREATININE 0.8 mg/dL (0.55-1.02); TOT PROT 7.8 g/dl (6.4-8.2)
[2018-01-12 14:17] LABS: ALK PHOS 90 U/L (45-117)
[2018-01-12 15:00] VITALS: TEMP 99.2
== END 2018-01-12 15:21 | disposition home or self-care (01) ==
LOC: JERFT 12:46
PROC: 3E0337Z Introduction of Electrolytic and Water Balance Substance into Peripheral Vein, Percutaneous Approach (ICD-10-PCS; principal; 2018-01-12)
PROC: 3E033GC Introduction of Other Therapeutic Substance into Peripheral Vein, Percutaneous Approach (ICD-10-PCS; 2018-01-12)
PROC: 3E0333Z Introduction of Anti-inflammatory into Peripheral Vein, Percutaneous Approach (ICD-10-PCS; 2018-01-12)
DX: N12 Tubulo-interstitial nephritis, not specified as acute or chronic (principal)
CPT/HCPCS: 36415; 74176; 80053; 81003; 81015; 84703; 85025; 87086; 87186; 99282-25; J7030

== ENCOUNTER 2018-09-26 19:41 | Emergency (ER) | payer OTHER ==
--- NOTE | 2018-09-26 20:01 | PDOC ---
Rapid Medical Evaluation Chief Complaint: Vaginal Bleeding Medical Evaluation: Allergies Allergy/AdvReac Type Severity Reaction Status Date / Time No Known Allergies Allergy Verified 01/12/18 12:56 I have performed a brief in-person evaluation of this patient. The patient presents with a chief complaint of: LLQ pain x 3 days with vag bleeding today; took a test yesterday and it was positive; LNMP 08/22; was taking BCPs but stopped them 09/19 Pertinent physical exam findings: +LLQ tenderness, soft, ND; pelvic deferred I have ordered the following: Labs, UA The patient will proceed to the ED for further evaluation. 09/26/18 19:59
[2018-09-26 20:03] VITALS: BP 130/78; PULSE 103; TEMP 98.2; BMI 30.1
[2018-09-26 21:14] LABS: HCG,QUALITATIVE URINE Positive
[2018-09-26 21:15] LABS: BASO % 1.1 % (0-2.0); EOS % 2.9 % (0-4.5); HEMATOCRIT 40.3 % (32.4-45.2); HEMOGLOBIN 14.2 GM/dL (10.7-15.3); LYMPH % 33.6 % (8-40); MCH 32.3 pg (25.7-33.7); MCHC 35.3 g/dl (32.0-36.0); MEAN CELL VOLUME 91.5 fl (80-96); MEAN PLT VOLUME 10.1 fl (7.5-11.1); MONO % 5.2 % (3.8-10.2); NEUT % 57.2 % (42.8-82.8); PLATELET COUNT 146 K/MM3 (134-434); WHITE BLOOD COUNT 9.9 K/mm3 (4.0-10.0)
--- NOTE | 2018-09-26 21:16 | PDOC ---
Attending Attestation - HPI HPI: 09/26/18 21:21 The patient is a 33 YOF, with no PMH who presents to the ER for vaginal bleeding today. She is also complaining of associated left lower quadrant pain. Patient's LMP was on 08/22. Patient did a home test yesterday, which was positive. The patient denies chest pain, shortness of breath, headache and dizziness. Denies fever, chills, nausea, vomit, diarrhea and constipation. Denies dysuria, frequency, urgency and hematuria. Allergies: NKA Past surgical history: None reported. Social history: No reported alcohol, drug or cigarette use. PCP: Dr. John Johnson - Physicial Exam PE: 09/26/18 21:37 Agrees with resident's exam. <Alyssa Rascon - Last Filed: 09/26/18 21:22> - Resident Resident Name: Suzan Robison - ED Attending Attestation I have performed the following: I have examined & evaluated the patient, The case was reviewed & discussed with the resident, I agree w/resident's findings & plan - Medical Decision Making 09/26/18 23:20 33-year-old female with vaginal bleeding and positive home test Ultrasound shows an abnormal gestational sac with a beta Quant levels of 370 Patient is O- and will require a micro-dose of a rogue am, she was discharged prior to administration Patient has agreed to return for dosing Otherwise she will follow up with PLASTIC DESIGN APPLIER or this department in 48 hours for repeat beta Quant levels and repeat ultrasound She was also advised to return sooner should her condition worsen in any way <Justine Miguel - Last Filed: 09/26/18 23:26>
--- NOTE | 2018-09-26 21:22 | PDOC ---
History of Present Illness - General Chief Complaint: Vaginal Bleeding Stated Complaint: BLEEDING/ONE MONTH Time Seen by Provider: 09/26/18 19:59 History Source: Patient - History of Present Illness Initial Comments: 09/26/18 21:22 The patient is a 33 year old female @ self-reported 4 weeks gestation who presents c/o acute onset of vaginal bleeding. States she noticed she was bleeding around 6 p.m. this evening and bleeding was accompanied by a sharp L sided pain. Pain is intermittent, sharp, 10/10 with no identified triggering or relieving factors. Positive urine test at home this morning. LMP was August 22, 2018. The patient denies chest pain, shortness of breath. The patient denies nausea/vomiting, diarrhea/constipation. The patient denies dysuria/hematuria, numbness/tingling. NKDA Surgical: B/L ovarian cyst removal As per EMR, patient last evaluated in our ED in 2018 for flank pain. Abx for pyelonephritis and d/c home. Past History - Past Medical History Allergies/Adverse Reactions: Allergies Allergy/AdvReac Type Severity Reaction Status Date / Time No Known Allergies Allergy Verified 09/26/18 20:03 Home Medications: Ambulatory Orders Acetaminophen [Tylenol -] 1,000 mg PO Q6H 01/12/18 Cephalexin Monohydrate [Keflex -] 500 mg PO Q8H #42 capsule 01/12/18 Cancer: Yes (GASTRITIS) COPD: No - Reproductive History (#): 3 Para: 3 - Immunization History Immunization Up to Date: No - Suicide/Smoking/Psychosocial Hx Smoking Status: Yes Smoking History: Never smoked Have you smoked in the past 12 months: No Number of Cigarettes Smoked Daily: 10 Information on smoking cessation initiated: No 'Breaking Loose' booklet given: 08/28/17 Hx Alcohol Use: No Drug/Substance Use Hx: No Substance Use Type: None Hx Substance Use Treatment: No Review of Systems - Review of Systems Constitutional: No: Chills, Fever HEENTM: No: Recent change in vision Respiratory: No: Cough, Shortness of Breath Cardiac (ROS): No: Chest Pain, Lightheadedness, Palpitations, Syncope ABD/GI: Yes: Abdominal cramping. No: Constipated, Diarrhea, Nausea, Vomiting : No: Burning, Dysuria *Physical Exam - Vital Signs Last Vital Signs Temp Pulse Resp BP Pulse Ox 98.2 F 103 H 16 130/78 100 09/26/18 19:59 09/26/18 19:59 09/26/18 19:59 09/26/18 19:59 09/26/18 19:59 - Physical Exam General Appearance: Yes: Nourished, Appropriately Dressed HEENT: positive: Normal Voice, Hearing Grossly Normal Neck: positive: Trachea midline, Supple Respiratory/Chest: positive: Lungs Clear, Normal Breath Sounds Cardiovascular: positive: S1, S2. negative: Edema, JVD Female Pelvic Exam: positive: other (scant blood in vaginal vault; open cervical os with protruding tissue) Gastrointestinal/Abdominal: positive: Normal Bowel Sounds, Soft Extremity: positive: Normal Capillary Refill, Normal Inspection Integumentary: positive: Normal Color, Dry, Warm Neurologic: positive: Fully Oriented, Alert Moderate Sedation - Procedure Monitoring Vital Signs: Procedure Monitoring Vital Signs Temperature 98.2 F 09/26/18 19:59 Pulse Rate 103 H 09/26/18 19:59 Respiratory Rate 16 09/26/18 19:59 Blood Pressure 130/78 09/26/18 19:59 O2 Sat by Pulse Oximetry (%) 100 09/26/18 19:59 ED Treatment Course - LABORATORY CBC & Chemistry Diagram: 09/26/18 20:58 09/26/18 20:58 - ADDITIONAL ORDERS Additional order review: Laboratory Results 09/26/18 21:05 Urine HCG, Qual Positive 09/26/18 20:58 RBC 4.40 MCV 91.5 MCHC 35.3 RDW 13.0 MPV 10.1 Neutrophils % 57.2 D Lymphocytes % 33.6 D Monocytes % 5.2 Eosinophils % 2.9 D Basophils % 1.1 Medical Decision Making - Medical Decision Making 09/26/18 21:23 33 year old female with vaginal bleeding. VS unremarkable. Frontal diagnosis: Ectopic vs. SAB vs. Threatened AB vs. physiologic bleeding of . Less likely ovarian torsion. Labs ordered in E include CBC, CMP, Beta-quant. Will obtain TVUS and beside pelvic exam. Reassess. 09/26/18 22:08 Bedside pelvic exam shows open cervical os with projecting tissue 09/26/18 22:30 B-HCG 300 c/w 2-3 week Hb stable 09/26/18 22:38 TVUS show gestational sac w/o pole or yolk sac 09/26/18 22:53 Patient and partner counseled on TVUS findings and importance of follow-up in 48 hours for repeat TVUS and Beta Quant. Clinical Impression: Missed AB vs. Threatened AB I discussed the physical exam findings, ancillary test results and final diagnoses with the patient. I answered all of the patient's questions. The patient was satisfied with the care received and felt comfortable with the discharge plan and treatment plan. The patient will return to the Emergency Department with any new, persistent or worsening symptoms. *DC/Admit/Observation/Transfer Diagnosis at time of Disposition: Vaginal bleeding - Discharge Dispostion Disposition: HOME Condition at time of disposition: Fair Decision to Admit order: No - Referrals Referrals: John Johnson MD [Primary Care Provider] - Lise Heaton DO [Staff Physician] - - Patient Instructions Additional Instructions: Please make a follow-up appointment for evaluation with an OB-Margin Analyst You must be evaluated in 48 hours (09/28/18) for repeat labs and an another transvaginal ultrasound. We have provided a referral to an emergency management system director or you can call your insurance company for a list of referrals. It is imperative you follow-up with an emergency management system director in the next 48 hours for an ultrasound and repeat labs. If you are unable to make an appointment in the next 48 hours return to the Emergency Department for repeat labs and ultrasound. Failure to return to have repeat labs and ultrasound could be life threatening. Return to Emergency Department immediately for any new/worsening/concerning symptoms including increased bleeding or severe pain. - Post Discharge Activity
[2018-09-26 22:10] LABS: ANION GAP 9 MMOL/L (8-16); BLOOD UREA NITROGEN 15 mg/dL (7-18); CHLORIDE 104 mmol/L (98-107); CO2 23 mmol/L (21-32); CREATININE 0.7 mg/dL (0.55-1.3); GLUCOSE,RANDOM 92 mg/dL (74-106); POTASSIUM 3.6 mmol/L (3.5-5.1); SODIUM 136 mmol/L (136-145)
[2018-09-26 22:17] LABS: URINE APPEARANCE SL CLOUDY; URINE BILIRUBIN NEGATIVE (<2.0 mg/dL); URINE COLOR YELLOW; URINE GLUCOSE (UA) NEGATIVE (NEGATIVE)
[2018-09-26 22:18] LABS: URINE KETONE 15 mg/dl (NEGATIVE); URINE NITRITE NEGATIVE (NEGATIVE); URINE PROTEIN NEGATIVE (NEGATIVE); URINE UROBILINOGEN 0.2 mg/dL (0.2-1.0)
[2018-09-26 22:19] LABS: URINE LEUK ESTERASE TRACE (NEGATIVE)
[2018-09-27] MEDS ORDERED: RHO(D) IMMUNE GLOBULIN 1,500 UNIT DISP.SYRIN IM ONE (00:17)
[2018-09-27 01:53] LABS: URINE RBC 15-20 /hpf (0-3)
[2018-09-27 01:54] LABS: EPI CELLS MANY /HPF (FEW); URINE BACTERIA FEW /hpf (NEGATIVE)
== END 2018-09-26 22:55 | disposition home or self-care (01) ==
LOC: JER 19:41
DX: O26.891 Other specified pregnancy related conditions, first trimester (principal); O20.8 Other hemorrhage in early pregnancy; O20.0 Threatened abortion; Z3A.01 Less than 8 weeks gestation of pregnancy
CPT/HCPCS: 36415; 76817-TC; 80048; 81003; 81015; 84702; 84703; 85025; 86850; 86900; 86901; 86999; 99283-25

== ENCOUNTER 2018-09-28 19:02 | Emergency (ER) | payer OTHER ==
--- NOTE | 2018-09-28 19:16 | PDOC ---
Rapid Medical Evaluation Time Seen by Provider: 09/28/18 19:13 Medical Evaluation: Allergies Allergy/AdvReac Type Severity Reaction Status Date / Time No Known Allergies Allergy Verified 09/28/18 19:12 09/28/18 19:14 I have performed a brief in-person evaluation of this patient. The patient presents with a chief complaint of: vaginal bleeding and cramping x2 days Pertinent physical exam findings:NAD I have ordered the following:Labs and US The patient will proceed to the ED for further evaluation. Discharge Disposition - Diagnosis Threatened - Referrals - Patient Instructions - Post Discharge Activity
[2018-09-28 19:26] VITALS: TEMP 98; BMI 30.1
[2018-09-28 19:59] LABS: BASO % 0.5 % (0-2.0); EOS % 2.7 % (0-4.5); HEMATOCRIT 37.7 % (32.4-45.2); HEMOGLOBIN 13.2 GM/dL (10.7-15.3); MCH 32.5 pg (25.7-33.7); MCHC 35.1 g/dl (32.0-36.0); MEAN CELL VOLUME 92.6 fl (80-96); MEAN PLT VOLUME 10.3 fl (7.5-11.1); MONO % 5.1 % (3.8-10.2); NEUT % 67.7 % (42.8-82.8); PLATELET COUNT 118 K/MM3 (134-434); RBC 4.07 M/mm3 (3.60-5.2); RDW 12.7 % (11.6-15.6); WHITE BLOOD COUNT 7.5 K/mm3 (4.0-10.0)
[2018-09-28 20:13] LABS: INR 0.83 (0.83-1.09); PROTHROMBIN TIME (PATIENT) 9.8 SEC (9.7-13.0)
[2018-09-28 20:20] LABS: EPI CELLS >36 /HPF (0-5); HYALINE CASTS 28 /hpf (0-8); PH,URINE 6.5 (5.0-8.0); URINE APPEARANCE TURBID; URINE BACTERIA 1551.924 /hpf (NEGATIVE); URINE BILIRUBIN NEGATIVE (<2.0 mg/dL); URINE COLOR ORANGE; URINE GLUCOSE (UA) NEGATIVE (NEGATIVE); URINE KETONE TRACE (NEGATIVE); URINE LEUK ESTERASE 3+ (NEGATIVE); URINE NITRITE NEGATIVE (NEGATIVE); URINE PROTEIN 1+ (NEGATIVE); URINE RBC 11 /hpf (0-4); URINE WBC 85 /hpf (0-5)
--- NOTE | 2018-09-28 20:47 | PDOC ---
History of Present Illness - General Chief Complaint: Vaginal Bleeding Stated Complaint: OB ON VACATION Time Seen by Provider: 09/28/18 19:13 - History of Present Illness Initial Comments: 33yo A0 currently 5 weeks (LMP 08/22/18) with PMH of ovarian cysts presenting for follow-up for threatened . Patient states she was present in the ED two days ago for similar complaints of vaginal bleeding and abdominal pain. She was instructed to follow-up with her management associate but was unable to make an appointment because "they were all booked" so she decided to come to the ED as instructed. She continues to have intermittent abdominal cramping described as "contractions" most focal to the LLQ. She took 800mg Motrin around 1pm which only relieved her pain mildly. Patient also continues to have vaginal bleeding but has not noticed clots or passage of tissue. She has used two pads today. No fevers, chills, chest pain, or shortness of breath. Past History - Past Medical History Allergies/Adverse Reactions: Allergies Allergy/AdvReac Type Severity Reaction Status Date / Time No Known Allergies Allergy Verified 09/28/18 19:12 Home Medications: Ambulatory Orders Acetaminophen [Tylenol -] 1,000 mg PO Q6H 01/12/18 Cephalexin Monohydrate [Keflex -] 500 mg PO Q8H #42 capsule 01/12/18 Cephalexin [Keflex] 500 mg PO BID #13 capsule 09/28/18 Cancer: Yes (GASTRITIS) COPD: No - Reproductive History (#): 3 Para: 3 Cervical CA: No Dysfunctional Uterine Bleeding: No Endometrial CA: No Polycystic Ovaries: No Tubal Ligation: No - Immunization History Immunization Up to Date: No - Suicide/Smoking/Psychosocial Hx Smoking Status: Yes Smoking History: Current every day smoker Have you smoked in the past 12 months: No Number of Cigarettes Smoked Daily: 2 Information on smoking cessation initiated: Yes 'Breaking Loose' booklet given: 08/28/17 Hx Alcohol Use: No Drug/Substance Use Hx: No Substance Use Type: None Hx Substance Use Treatment: No Review of Systems - Review of Systems Comments:: Constitutional: no fever, no chills HEENT: no throat pain, no dysphagia Cardiovascular: no chest pain, no palpitations Respiratory: no cough, no shortness of breath Gastrointestinal: +abdominal pain, no diarrhea Genitourinary: +dysuria, +vaginal bleeding Musculoskeletal: no myalgia, no arthralgia Skin: no rash, no itching Neurologic: no headache, no weakness *Physical Exam - Vital Signs Last Vital Signs Temp Pulse Resp BP Pulse Ox 98 F 114 H 18 136/76 100 09/28/18 19:12 09/28/18 19:12 09/28/18 19:12 09/28/18 19:12 09/28/18 19:12 - Physical Exam Comments: General: Awake, alert, and fully oriented, in no acute distress Head: No signs of trauma Eyes: EOMI, sclera anicteric ENT: Moist mucus membranes Neck: Normal ROM, supple Lungs: Lungs clear, Normal breath sounds Cardio: Regular rhythm, S1 and S2 present Abdomen: Soft, nontender. No guarding, no rebound, no masses Extremities: Normal range of motion, Distal pulses present SKIN: Warm, Dry, normal turgor Neurologic: Cranial nerves II through XII grossly intact. Normal speech Moderate Sedation - Procedure Monitoring Vital Signs: Procedure Monitoring Vital Signs Temperature 98 F 09/28/18 19:12 Pulse Rate 114 H 09/28/18 19:12 Respiratory Rate 18 09/28/18 19:12 Blood Pressure 136/76 09/28/18 19:12 O2 Sat by Pulse Oximetry (%) 100 09/28/18 19:12 ED Treatment Course - LABORATORY CBC & Chemistry Diagram: 09/28/18 19:37 - ADDITIONAL ORDERS Additional order review: Laboratory Results 09/28/18 09/28/18 19:38 19:37 PT with INR 9.80 INR 0.83 Beta HCG, Quant 284.6 09/28/18 19:37 RBC 4.07 MCV 92.6 MCHC 35.1 RDW 12.7 MPV 10.3 Neutrophils % 67.7 Lymphocytes % 24.0 D Monocytes % 5.1 Eosinophils % 2.7 Basophils % 0.5 Medical Decision Making - Medical Decision Making 33yo A0 currently 5 weeks (LMP 08/22/18) with PMH of ovarian cysts presenting for follow-up for threatened . DDX including but not limited to threatened , ectopic , ovarian cyst, molar 1g ofirmev 1L NS No anemia or leukocytosis UA positive for infection Keflex given Patient is Rh-; Rhogam ordered 09/28/18 22:35 Ultrasound: "In comparison to a prior study of 09/26/2018 interval development of echogenic material is seen within an irregular intrauterine gestational sac probably representing blood. There also appears to be development of a small collection of blood surrounding the gestational sac. No embryonic pole or yolk sac is noted. 2.7 cm left ovarian cyst. " B-hcg decreased as expected for threatened , 285 (down from 370) Low suspicion for ectopic Patient discharged *DC/Admit/Observation/Transfer Diagnosis at time of Disposition: Threatened - Discharge Dispostion Disposition: HOME Condition at time of disposition: Stable - Prescriptions Prescriptions: Cephalexin [Keflex] 500 mg PO BID #13 capsule - Referrals - Patient Instructions Printed Discharge Instructions: DI for Threatened Additional Instructions: You were seen in the Emergency Department for vaginal bleeding and abdominal pain. Blood work was normal. Beta-hcg decreased as expected 370.3 (on 09/26/18)--->284.6 (on 09/28/18) Urinalysis showed that you have a urinary tract infection. Antibiotics prescription sent to your pharmacy. Follow-up with your management associate within one week. You can take [id number] tylenol for pain. Follow the instructions on the medication bottle. Return to the Emergency Department if you experience: -heavy bleeding (more than two pads per hour for two hours) -severe pain -lightheadedness -shortness of breath -high fever -any other concerning symptoms - Post Discharge Activity
[2018-09-28] MEDS ORDERED: SODIUM CHLORIDE 1,000 ML IV STA (21:09)
[2018-09-28] MEDS ORDERED: ACETAMINOPHEN 1000 MG/100 ML VIAL (NON FORMULARY) IVPB ONE (21:09)
[2018-09-28] MEDS ORDERED: RHO(D) IMMUNE GLOBULIN 1,500 UNIT DISP.SYRIN IM ONE (21:09)
[2018-09-28] MEDS ORDERED: ACETAMINOPHEN INJECTION 100 ML IVPB ONE (21:31)
[2018-09-28] MEDS ORDERED: CEPHALEXIN MONOHYDRATE 500 MG CAPSULE (UD) PO ONE (22:07)
[2018-09-28] MEDS ORDERED: CEPHALEXIN MONOHYDRATE 500 MG CAPSULE (UD) ONE (22:19)
[2018-09-28 22:47] VITALS: BP 124/69; PULSE 98
--- NOTE | 2018-09-28 22:50 | PDOC ---
Attending Attestation - Resident Resident Name: Aliza Martinez - ED Attending Attestation I have performed the following: I have examined & evaluated the patient, The case was reviewed & discussed with the resident, I agree w/resident's findings & plan, Exceptions are as noted - HPI HPI: 09/28/18 22:48 The patient is a 33 year old female, A0, currently 5 weeks , with a significant past medical history of ovarian cysts who presents to the emergency department for a repeat US and HCG. Patient notes she was here in the ED 2 days ago for intermittent vaginal bleeding, abdominal pain and similar symptoms. 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 The patient notes continued vaginal spotting and lower abdominal cramps. The patient notes she took one tablet of 800mg Motrin at 1pm with mild relief. The patient denies chest pain, shortness of breath, headache, dizziness, fever , chills, nausea, vomit, diarrhea or constipation. Allergies: NKDA Past surgical history: none reported Social history: None reported - Physicial Exam PE: 09/28/18 22:51 "GENERAL: Awake, alert, and fully oriented, in no acute distress. HEAD: No signs of trauma EYES: PERRLA, EOMI, sclera anicteric, conjunctiva clear ENT: Auricles normal inspection, hearing grossly normal, nares patent, oropharynx clear without exudates. Moist mucosa NECK: Nontender, no stepoffs, Normal ROM, supple, no lymphadenopathy, JVD, or masses LUNGS: Breath sounds equal, clear to auscultation bilaterally. No wheezes, and no crackles HEART: Regular rate and rhythm, normal S1 and S2, no murmurs, rubs or gallops ABDOMEN: Soft, nontender, normoactive bowel sounds. No guarding, no rebound. No masses EXTREMITIES: Normal range of motion, no edema. No clubbing or cyanosis. No cords, erythema, or tenderness NEUROLOGICAL: Cranial nerves II through XII intact. 5/5 strength and sensation in all extremities, Normal speech, normal gait, normal cerebellar function SKIN: Warm, Dry, normal turgor, no rashes or lesions noted. - Medical Decision Making 09/28/18 22:51 33 F here for f/u US and HCG. - HCG downtrending - US similar to prior Pt likely miscarrying Discussed results with pt, as well as gave return precautions Pt to f/u with OB within 1 week. Repeat VS improved, HR now 90s Pt is well appearing, with normal vitals. Clinically stable for DC at this time. I discussed the physical exam findings, ancillary test results and final diagnoses with the patient. I answered all of the patient's questions. The patient was satisfied with the care received and felt comfortable with the discharge plan and treatment plan. The patient agrees to follow up with the primary care physician within 24-72 hours.
== END 2018-09-28 22:47 | disposition home or self-care (01) ==
LOC: JER 19:02
PROC: 3E033NZ Introduction of Analgesics, Hypnotics, Sedatives into Peripheral Vein, Percutaneous Approach (ICD-10-PCS; principal; 2018-09-28)
PROC: 3E023GC Introduction of Other Therapeutic Substance into Muscle, Percutaneous Approach (ICD-10-PCS; 2018-09-28)
PROC: 3E0337Z Introduction of Electrolytic and Water Balance Substance into Peripheral Vein, Percutaneous Approach (ICD-10-PCS; 2018-09-28)
DX: O26.891 Other specified pregnancy related conditions, first trimester (principal); Z3A.01 Less than 8 weeks gestation of pregnancy; O20.0 Threatened abortion; F17.210 Nicotine dependence, cigarettes, uncomplicated; K29.70 Gastritis, unspecified, without bleeding
CPT/HCPCS: 36415; 76817-TC; 81003; 84702; 85025; 85610; 86850; 86900; 86901; 86999; 96361; 96372; 96374; 99283-25; J0131; J1561; J7030

== ENCOUNTER 2019-04-12 18:48 | Emergency (ER) | payer OTHER ==
--- NOTE | 2019-04-12 19:28 | PDOC ---
Rapid Medical Evaluation Time Seen by Provider: 04/12/19 19:25 Medical Evaluation: Allergies Allergy/AdvReac Type Severity Reaction Status Date / Time No Known Allergies Allergy Verified 09/28/18 19:12 04/12/19 19:25 I have performed a brief in-person evaluation of this patient. The patient presents with a chief complaint of: R flank pain for 2 days w/ burning/pain on urination, w/ urgency/hesitancy. H/o pyelonephritis and hydronephrosis. C/o hands and feet swelling Pertinent physical exam findings: R CVA tenderness I have ordered the following: CBC, CMP, UA, Ucx, kidney/bladder sono The patient will proceed to the ED for further evaluation. Discharge Disposition - Diagnosis Flank pain - Referrals - Patient Instructions - Post Discharge Activity
[2019-04-12 19:33] VITALS: BP 129/52; PULSE 64; TEMP 98.8; BMI 32.5
[2019-04-12] MEDS ORDERED: SODIUM CHLORIDE 1,000 ML IV STA (19:50)
[2019-04-12] MEDS ORDERED: ACETAMINOPHEN 1000 MG/100 ML VIAL (NON FORMULARY) IVPB ONE (19:50)
[2019-04-12] MEDS ORDERED: ACETAMINOPHEN INJECTION 100 ML IVPB ONE (20:08)
[2019-04-12 20:15] LABS: BASO % 1.1 % (0-2.0); EOS % 4.2 % (0-4.5); HEMATOCRIT 40.3 % (32.4-45.2); HEMOGLOBIN 13.6 GM/dL (10.7-15.3); LYMPH % 44.9 % (8-40); MCH 31.4 pg (25.7-33.7); MCHC 33.7 g/dl (32.0-36.0); MEAN CELL VOLUME 92.9 fl (80-96); MEAN PLT VOLUME 9.7 fl (7.5-11.1); MONO % 4.5 % (3.8-10.2); NEUT % 45.3 % (42.8-82.8); PLATELET COUNT 141 K/MM3 (134-434); RBC 4.34 M/mm3 (3.60-5.2); RDW 13.1 % (11.6-15.6); WHITE BLOOD COUNT 7.4 K/mm3 (4.0-10.0)
[2019-04-12 20:23] LABS: EPI CELLS 16.1 /HPF (0-5/HPF); HYALINE CASTS 9 /lpf (0-8); PH,URINE 7.5 (5.0-8.0); URINE APPEARANCE CLOUDY; URINE BACTERIA 1207.5 /hpf (NEGATIVE); URINE BILIRUBIN NEGATIVE (NEGATIVE); URINE COLOR YELLOW; URINE GLUCOSE (UA) NEGATIVE (NEGATIVE); URINE KETONE NEGATIVE (NEGATIVE); URINE LEUK ESTERASE NEGATIVE (NEGATIVE); URINE NITRITE NEGATIVE (NEGATIVE); URINE PROTEIN NEGATIVE (NEGATIVE); URINE RBC 20 /hpf (0-4); URINE UROBILINOGEN 0.2 mg/dL (0.2-1.0)
--- NOTE | 2019-04-12 20:25 | PDOC ---
History of Present Illness - General History Source: Patient Exam Limitations: No Limitations <Sara Lehman - Last Filed: 04/12/19 22:07> <Raquel Reyes - Last Filed: 04/12/19 22:15> - General Chief Complaint: Urinary Problem Stated Complaint: LOWER ABD AND BACK PAIN Time Seen by Provider: 04/12/19 19:25 Past History - Past Medical History Cancer: Yes (GASTRITIS) COPD: No - Reproductive History (#): 3 Para: 3 Cervical CA: No Dysfunctional Uterine Bleeding: No Endometrial CA: No Polycystic Ovaries: No Tubal Ligation: No - Immunization History Immunization Up to Date: No - Psycho Social/Smoking Cessation Hx Smoking Status: Yes Smoking History: Never smoked Have you smoked in the past 12 months: No Number of Cigarettes Smoked Daily: 10 'Breaking Loose' booklet given: 08/28/17 Hx Alcohol Use: No Drug/Substance Use Hx: No Substance Use Type: None Hx Substance Use Treatment: No <Sara Lehman - Last Filed: 04/12/19 22:07> <Raquel Reyes - Last Filed: 04/12/19 22:15> - Past Medical History Allergies/Adverse Reactions: Allergies Allergy/AdvReac Type Severity Reaction Status Date / Time No Known Allergies Allergy Verified 04/12/19 19:29 Home Medications: Ambulatory Orders Acetaminophen [Tylenol -] 1,000 mg PO Q6H 01/12/18 Cephalexin Monohydrate [Keflex -] 500 mg PO Q8H #42 capsule 01/12/18 Cephalexin [Keflex] 500 mg PO BID #13 capsule 09/28/18 *Physical Exam - Vital Signs Last Vital Signs Temp Pulse Resp BP Pulse Ox 98.8 F 64 18 129/52 L 99 04/12/19 19:26 04/12/19 19:26 04/12/19 19:26 04/12/19 19:26 04/12/19 19:26 - Physical Exam General Appearance: No: Apparent Distress Respiratory/Chest: positive: Lungs Clear, Normal Breath Sounds. negative: Respiratory Distress Cardiovascular: positive: Regular Rhythm, Regular Rate, S1, S2. negative: Murmur Female Pelvic Exam: positive: adnexal tenderness (mild R side). negative: vaginal bleeding (scant brownish discharge in vault) Gastrointestinal/Abdominal: positive: Tender (mild along RLQ), Soft. negative: Distended, Guarding, Rebound, Mass Musculoskeletal: positive: CVA Tenderness (R) (mild) Neurologic: positive: Alert, Normal Mood/Affect <Sara Lehman - Last Filed: 04/12/19 22:07> - Vital Signs Last Vital Signs Temp Pulse Resp BP Pulse Ox 98.8 F 64 18 129/52 L 99 04/12/19 19:26 04/12/19 19:26 04/12/19 19:26 04/12/19 19:26 04/12/19 19:26 <Raquel Reyes - Last Filed: 04/12/19 22:15> ED Treatment Course - LABORATORY CBC & Chemistry Diagram: 04/12/19 20:00 04/12/19 20:00 - ADDITIONAL ORDERS Additional order review: 04/12/19 20:00 RBC 4.34 MCV 92.9 MCHC 33.7 RDW 13.1 MPV 9.7 Neutrophils % 45.3 D Lymphocytes % 44.9 H D Monocytes % 4.5 Eosinophils % 4.2 Basophils % 1.1 - Medications Given in the ED: ED Medications Discontinued Medications Generic Name Dose Route Start Last Admin Trade Name Freq PRN Reason Stop Dose Admin Acetaminophen 1,000 mg 04/12/19 19:50 04/12/19 20:13 Ofirmev Injection - IVPB 04/12/19 19:51 1,000 mg ONCE ONE Administration <Sara Lehman - Last Filed: 04/12/19 22:07> - LABORATORY CBC & Chemistry Diagram: 04/12/19 20:00 04/12/19 20:00 - ADDITIONAL ORDERS Additional order review: Laboratory Results 04/12/19 04/12/19 04/12/19 20:00 20:00 20:00 Sodium Potassium Chloride Carbon Dioxide Anion Gap BUN Creatinine Est GFR (CKD-EPI)AfAm Est GFR (CKD-EPI)NonAf Random Glucose Calcium Total Bilirubin AST ALT Alkaline Phosphatase Total Protein Albumin Lipase 181 Beta HCG, Quant Urine Color Yellow Urine Appearance Cloudy Urine pH 7.5 Ur Specific [place] 1.013 Urine Protein Negative Urine Glucose (UA) Negative Urine Ketones Negative Urine Blood 3+ H Urine Nitrite Negative Urine Bilirubin Negative Urine Urobilinogen 0.2 Ur Leukocyte Esterase Negative Urine WBC (Auto) 14.5 Urine RBC (Auto) 20 Urine Casts (Auto) 9 U Epithel Cells (Auto) 16.1 Urine Bacteria (Auto) 1207.5 Urine HCG, Qual Positive 04/12/19 20:00 Sodium 136 Potassium 3.7 Chloride 103 Carbon Dioxide 28 Anion Gap 6 L BUN 12.1 Creatinine 0.7 Est GFR (CKD-EPI)AfAm 131.02 Est GFR (CKD-EPI)NonAf 113.04 Random Glucose 97 Calcium 8.7 Total Bilirubin 0.2 AST 19 ALT 37 Alkaline Phosphatase 101 Total Protein 7.5 Albumin 4.1 Lipase Beta HCG, Quant 34.1 Urine Color Urine Appearance Urine pH Ur Specific [place] Urine Protein Urine Glucose (UA) Urine Ketones Urine Blood Urine Nitrite Urine Bilirubin Urine Urobilinogen Ur Leukocyte Esterase Urine WBC (Auto) Urine RBC (Auto) Urine Casts (Auto) U Epithel Cells (Auto) Urine Bacteria (Auto) Urine HCG, Qual 04/12/19 20:00 RBC 4.34 MCV 92.9 MCHC 33.7 RDW 13.1 MPV 9.7 Neutrophils % 45.3 D Lymphocytes % 44.9 H D Monocytes % 4.5 Eosinophils % 4.2 Basophils % 1.1 - Medications Given in the ED: ED Medications Discontinued Medications Generic Name Dose Route Start Last Admin Trade Name Freq PRN Reason Stop Dose Admin Acetaminophen 1,000 mg 04/12/19 19:50 04/12/19 20:13 Ofirmev Injection - IVPB 04/12/19 19:51 1,000 mg ONCE ONE Administration Sodium Chloride 1,000 mls @ 1,000 mls/hr 04/12/19 19:50 04/12/19 20:13 Normal Saline - IV 04/12/19 20:49 1,000 mls/hr ASDIR STA Administration <Raquel Reyes - Last Filed: 04/12/19 22:15> Medical Decision Making - Medical Decision Making 33 y/o F hx of pyelonephritis presents with dysuria and increased urgency x 2 days. States she had temp of 101 at home and took 1000 mg of Tylenol at 12 PM. Is concerned she may have another kidney infection. Also mentions having RLQ abd pain radiating to back from yesterday. In addition, she mentions her LNMP was 04/06 and is still on her menstrual cycle (not having heavy bleeding currently; states just brownish d/c); states her cycle has never lasted this long. Denies cough, sob, cp, vomiting, diarrhea. Denies prior abdominal/pelvic surgeries. Consider pyelo, UTI, appendicitis, ? (consider ectopic if so) Plan: labs, IVF, Tylenol, reassess 04/12/19 20:23 UCG positive Bhcg still pending Patient states she has regular menstrual cycles and her cycle before 04/06 was on 03/0604/12/19 20:40 TVUS: Shows gestational sac at 5 weeks 1 day with deformed yolk sac and/or nonviable embryonic pole Bhcg was 34 Patient just got new TELERADIOLOGIST and unable to recall name D/W programmer analyst consultant TELERADIOLOGIST, Dr. Ayon, who states likely this is miscarriage and patient can f/u with him on 04/1504/12/19 22:07 <Sara Lehman - Last Filed: 04/12/19 22:07> - Medical Decision Making 04/12/19 21:00 The patient was seen and evaluated in conjunction with midlevel provider under my direct supervision, ancillary studies were reviewed. I agree with the plan as outlined ALONZO Lehman. HPI, workup/dispo as outlined. VS reviewed, wnl. Vital Signs Temp Pulse Resp BP Pulse Ox 98.8 F 64 18 129/52 L 99 04/12/19 19:26 04/12/19 19:26 04/12/19 19:26 04/12/19 19:26 04/12/19 19:26 labs and lytes normal beta 34, TVUS to check for status, 5 weeks, but low beta miscarriage? unlikely ectopic senior center director cs with Dr Ayon programmer analyst consultant - can f/u this week. anticipate discharge, conduit mechanic followup, return precautions 04/12/19 22:14 <Raquel Reyes - Last Filed: 04/12/19 22:15> Discharge - Discharge Information Problems reviewed: Yes - Admission No - Additional Discharge Information Prescription Drug Monitoring Program (I-STOP) results: I-STOP not reviewed <Sara Lehman - Last Filed: 04/12/19 22:07> <Raquel Reyes - Last Filed: 04/12/19 22:15> - Discharge Information Clinical Impression/Diagnosis: Miscarriage Condition: Stable Disposition: HOME - Follow up/Referral Referrals: Arnaldo Rush MD [Staff Physician] - 04/15/19 - Patient Discharge Instructions Patient Printed Discharge Instructions: DI for Miscarriage Additional Instructions: Thank you for choosing [facility]. It was a pleasure taking care of you. You are possibly having a miscarriage Please follow-up with TELERADIOLOGIST, Dr. Ayon on 04/15 for further evaluation Return to the Emergency Department if your symptoms worsen or persist or have other concerning symptoms.
[2019-04-12 20:44] LABS: ALBUMIN 4.1 g/dl (3.4-5.0); BILIRUBIN,TOTAL 0.2 mg/dL (0.2-1); BLOOD UREA NITROGEN 12.1 mg/dL (7-18); CALCIUM 8.7 mg/dL (8.5-10.1); CREATININE 0.7 mg/dL (0.55-1.3); POTASSIUM 3.7 mmol/L (3.5-5.1); TOT PROT 7.5 g/dl (6.4-8.2)
[2019-04-12 20:56] LABS: URINE WBC 14.5 /hpf (0-5)
== END 2019-04-12 22:15 | disposition home or self-care (01) ==
LOC: JER 18:48
PROC: 3E033NZ Introduction of Analgesics, Hypnotics, Sedatives into Peripheral Vein, Percutaneous Approach (ICD-10-PCS; principal; 2019-04-12)
DX: O26.891 Other specified pregnancy related conditions, first trimester (principal); O02.1 Missed abortion; Z3A.01 Less than 8 weeks gestation of pregnancy
CPT/HCPCS: 36415; 76817-TC; 80053; 81003; 83690; 84702; 84703; 85025; 87086; 87186; 96374; 99284-25; J0131; J7030

== ENCOUNTER 2020-01-04 19:29 | Emergency (ER) | payer OTHER ==
[2020-01-04] MEDS ORDERED: ACETAMINOPHEN 500 MG TABLET (FP) PO ONE (19:40)
[2020-01-04 19:43] VITALS: BP 115/100; PULSE 126; TEMP 101; BMI 30.1
[2020-01-04] MEDS ORDERED: ACETAMINOPHEN 325 MG TABLET (FP) ONE (19:49)
[2020-01-04] MEDS ORDERED: ONDANSETRON *ODT* 4 MG TABLET SL ONE (19:56)
[2020-01-04 20:04] LABS: THROAT:GRP A STREP ANTIGEN Negative (Negative)
== END 2020-01-04 20:18 | disposition home or self-care (01) ==
LOC: JER 19:29
DX: R50.9 Fever, unspecified (principal)
CPT/HCPCS: 71045-TC-FY; 87070; 87077; 87880; 99283-25; Q0162; U0003

== ENCOUNTER 2021-01-22 15:01 | Emergency (ER) | payer OTHER ==
[2021-01-22 15:25] VITALS: BMI 26.9
[2021-01-22] MEDS ORDERED: ACETAMINOPHEN 325 MG TABLET (FP) PO ONE (15:38)
[2021-01-22] MEDS ORDERED: ACETAMINOPHEN 500 MG TABLET (FP) ONE (16:34)
[2021-01-22 17:32] LABS: EPI CELLS >36 /uL (0-25.1); HYALINE CASTS 5 /uL (0-3.1); PH,URINE 5.5 (5.0-8.0); URINE APPEARANCE CLOUDY; URINE BACTERIA 170 /uL (0-1359); URINE BILIRUBIN NEGATIVE (NEGATIVE); URINE COLOR DK YELLOW; URINE GLUCOSE (UA) NEGATIVE (NEGATIVE); URINE KETONE 1+ (NEGATIVE); URINE LEUK ESTERASE TRACE (NEGATIVE); URINE NITRITE NEGATIVE (NEGATIVE); URINE PROTEIN 1+ (NEGATIVE); URINE RBC 39 /uL (0-23.9); URINE WBC 44 /uL (0-25.8)
[2021-01-22 17:33] LABS: HCG,QUALITATIVE URINE Negative
[2021-01-22 23:45] VITALS: BP 115/74; PULSE 99; TEMP 99.7
== END 2021-01-22 20:53 | disposition home or self-care (01) ==
LOC: JERFT 15:01 → JER 15:01 → JERFT 20:53
DX: N10 Acute pyelonephritis (principal)
CPT/HCPCS: 74176-TC; 81003; 84703; 87086; 87186; 99284-25

== ENCOUNTER 2021-06-10 17:45 | Emergency (ER) | payer OTHER ==
[2021-06-10 17:57] VITALS: BP 158/78; PULSE 110; TEMP 98.9; BMI 29.2
[2021-06-10] MEDS ORDERED: SODIUM CHLORIDE 1,000 ML IV STA (20:24)
[2021-06-10] MEDS ORDERED: ACETAMINOPHEN 1000 MG/100 ML VIAL IVPB ONE (20:24)
[2021-06-10] MEDS ORDERED: METHOCARBAMOL 500 MG TABLET PO ONE (20:25)
[2021-06-10] MEDS ORDERED: ACETAMINOPHEN INJECTION 100 ML IVPB ONE (21:07)
[2021-06-10] MEDS ORDERED: METHOCARBAMOL 500 MG TABLET ONE (21:07)
[2021-06-10 21:38] LABS: BASO % 0.6 % (0-2.0); EOS % 3.9 % (0-4.5); HEMATOCRIT 42.6 % (32.4-45.2); HEMOGLOBIN 14.5 GM/dL (10.7-15.3); LYMPH % 40.4 % (8-40); MCH 31.7 pg (25.7-33.7); MEAN CELL VOLUME 93.4 fl (80-96); MEAN PLT VOLUME 10.2 fl (7.5-11.1); NEUT % 50.1 % (42.8-82.8); PLATELET COUNT 108 10^3/uL (134-434); RBC 4.56 M/mm3 (3.60-5.2); RDW 12.9 % (11.6-15.6)
[2021-06-10 22:32] LABS: CALCIUM 9.1 mg/dL (8.5-10.1)
[2021-06-10 22:33] LABS: ALBUMIN 3.6 g/dl (3.4-5.0); BLOOD UREA NITROGEN 10.2 mg/dL (7-18)
[2021-06-10 22:36] LABS: CREATININE 0.7 mg/dL (0.55-1.3)
[2021-06-10 22:38] LABS: BILIRUBIN,TOTAL 0.4 mg/dL (0.2-1); TOT PROT 7.5 g/dl (6.4-8.2)
[2021-06-10] MEDS ORDERED: KETOROLAC TROMETHAMINE 60 MG/2 ML VIAL IVPUSH ONE (22:57)
[2021-06-10] MEDS ORDERED: KETOROLAC TROMETHAMINE 15 MG/ML VIAL ONE (22:58)
[2021-06-11 01:09] LABS: EPI CELLS 25 /uL (0-25.1); HYALINE CASTS 5 /uL (0-3.1); PH,URINE 6.5 (5.0-8.0); URINE APPEARANCE CLOUDY; URINE BACTERIA >9,000 /uL (0-1359); URINE BILIRUBIN NEGATIVE (NEGATIVE); URINE COLOR YELLOW; URINE GLUCOSE (UA) NEGATIVE (NEGATIVE); URINE KETONE 2+ (NEGATIVE); URINE LEUK ESTERASE NEGATIVE (NEGATIVE); URINE NITRITE POSITIVE (NEGATIVE); URINE PROTEIN NEGATIVE (NEGATIVE); URINE RBC 115 /uL (0-23.9); URINE WBC 9 /uL (0-25.8)
[2021-06-11 01:36] LABS: HCG,QUALITATIVE URINE NEGATIVE
== END 2021-06-11 04:02 | disposition home or self-care (01) ==
LOC: JER 17:45
DX: R10.9 Unspecified abdominal pain (principal)
CPT/HCPCS: 36415; 74176-TC; 76775-TC; 80053; 81003; 84703; 85025; 87086; 87186; 99285-25; J0131

== ENCOUNTER 2021-08-10 13:24 | Emergency (ER) | payer OTHER ==
[2021-08-10 14:01] VITALS: BP 135/78; TEMP 98; BMI 27.4
[2021-08-10 14:30] VITALS: PULSE 116
[2021-08-10] MEDS ORDERED: DIPHTH,PERTUSS(ACELL),TET 0.5 ML DISP.SYRIN IM ONE ×2 (14:46→15:23)
== END 2021-08-10 15:56 | disposition home or self-care (01) ==
LOC: JER 13:24 → JERFT 13:24
PROC: 0HQGXZZ Repair Left Hand Skin, External Approach (ICD-10-PCS; principal; 2021-08-10)
PROC: 3E0234Z Introduction of Serum, Toxoid and Vaccine into Muscle, Percutaneous Approach (ICD-10-PCS; 2021-08-10)
DX: S61.215A Laceration without foreign body of left ring finger without damage to nail, initial encounter (principal); R55 Syncope and collapse; W26.8XXA Contact with other sharp object(s), not elsewhere classified, initial encounter
CPT/HCPCS: 90715; 93005; 93010; 99284-25

== ENCOUNTER 2021-11-29 22:10 | Emergency (ER) | payer OTHER ==
[2021-11-29 22:20] VITALS: BP 133/90; PULSE 117; TEMP 98.2; BMI 29.7
== END 2021-11-29 23:29 | disposition home or self-care (01) ==
LOC: JERFT 22:10 → JER 22:10 → JERFT 23:29
DX: S90.852A Superficial foreign body, left foot, initial encounter (principal)
CPT/HCPCS: 73630-TC-LT; 99283-25

== ENCOUNTER 2021-12-27 21:03 | Emergency (ER) | payer OTHER ==
[2021-12-27 21:14] VITALS: BP 139/78; PULSE 106; BMI 30.1
[2021-12-27] MEDS ORDERED: ACETAMINOPHEN 500 MG TABLET (FP) PO ONE (23:12)
[2021-12-27] MEDS ORDERED: ACETAMINOPHEN 500 MG TABLET (FP) ONE (23:23)
[2021-12-27 23:43] LABS: BASO % 1.1 % (0-2.0); EOS % 3.3 % (0-4.5); HEMOGLOBIN 14.6 GM/dL (10.7-15.3); LYMPH % 36.4 % (8-40); MCH 31.6 pg (25.7-33.7); MCHC 34.8 g/dl (32.0-36.0); MEAN CELL VOLUME 90.9 fl (80-96); MEAN PLT VOLUME 9.1 fl (7.5-11.1); MONO % 4.8 % (3.8-10.2); NEUT % 54.4 % (42.8-82.8); PLATELET COUNT 140 10^3/uL (134-434); RBC 4.62 M/mm3 (3.60-5.2); WHITE BLOOD COUNT 9.3 K/mm3 (4.0-10.0)
[2021-12-27 23:56] LABS: ALBUMIN 3.9 g/dl (3.4-5.0); BLOOD UREA NITROGEN 13.6 mg/dL (7-18)
[2021-12-27 23:59] LABS: CREATININE 0.9 mg/dL (0.55-1.3)
[2021-12-28 00:01] LABS: BILIRUBIN,TOTAL 0.2 mg/dL (0.2-1); TOT PROT 7.9 g/dl (6.4-8.2)
[2021-12-28] MEDS ORDERED: CLINDAMYCIN HCL 300 MG CAPSULE PO ONE (00:28)
[2021-12-28] MEDS ORDERED: CLINDAMYCIN HCL 150 MG CAPSULE (FP) ONE (00:35)
== END 2021-12-28 00:41 | disposition home or self-care (01) ==
LOC: JER 21:03
DX: S90.852A Superficial foreign body, left foot, initial encounter (principal); Y99.9 Unspecified external cause status; Z87.821 Personal history of retained foreign body fully removed
CPT/HCPCS: 36415; 80053; 85025; 87040; 99283-25

== ENCOUNTER 2023-02-05 19:47 | Emergency (ER) | payer OTHER ==
[2023-02-05 19:56] VITALS: BMI 33.6
[2023-02-05] MEDS ORDERED: SODIUM CHLORIDE 0.9% 500 ML INFUS.BAG IV ONE (20:25)
[2023-02-05] MEDS ORDERED: ONDANSETRON 4 MG/2 ML VIAL IVPUSH ONE (20:25)
[2023-02-05] MEDS ORDERED: ONDANSETRON 4 MG/2 ML VIAL ONE (20:39)
[2023-02-05] MEDS ORDERED: guaiFENesin/CODEINE 10 ML UNIT-DOSE CUPS PO ONE (20:50)
[2023-02-05] MEDS ORDERED: guaiFENesin/CODEINE 10 ML UNIT-DOSE CUPS ONE (20:51)
[2023-02-05 21:08] LABS: BASO % 0.7 % (0-2.0); EOS % 3.7 % (0-4.5); HEMATOCRIT 42.8 % (32.4-45.2); HEMOGLOBIN 14.7 GM/dL (10.7-15.3); LYMPH % 33.2 % (8-40); MCH 31.2 pg (25.7-33.7); MCHC 34.3 g/dl (32.0-36.0); MEAN PLT VOLUME 9.5 fl (7.5-11.1); MONO % 6.6 % (3.8-10.2); NEUT % 55.8 % (42.8-82.8); PLATELET COUNT 167 10^3/uL (134-434); RDW 13.2 % (11.6-15.6); WHITE BLOOD COUNT 10.6 K/mm3 (4.0-10.0)
[2023-02-05 21:21] LABS: POTASSIUM 3.7 mmol/L (3.5-5.1)
[2023-02-05 21:24] LABS: CALCIUM 8.8 mg/dL (8.5-10.1)
[2023-02-05 21:29] LABS: TOT PROT 8.1 g/dl (6.4-8.2)
[2023-02-05 21:30] LABS: BILIRUBIN,TOTAL 0.4 mg/dL (0.2-1)
[2023-02-05 22:07] VITALS: BP 130/89; PULSE 102; RESP 20; TEMP 99.1
== END 2023-02-05 22:26 | disposition home or self-care (01) ==
LOC: JER 19:47
PROC: 3E033GC Introduction of Other Therapeutic Substance into Peripheral Vein, Percutaneous Approach (ICD-10-PCS; principal; 2023-02-05)
DX: J40 Bronchitis, not specified as acute or chronic (principal)
CPT/HCPCS: 0241U-QW; 36415; 71046-TC-FY; 80053; 85025; 85379; 93005; 93010; 99285-25

== ENCOUNTER 2023-06-29 19:42 | Emergency (ER) | payer OTHER ==
[2023-06-29 19:56] VITALS: BP 128/79; PULSE 104; RESP 20; TEMP 100.1; BMI 30.2
[2023-06-29] MEDS ORDERED: ACETAMINOPHEN 500 MG TABLET (FP) PO ONE (20:38)
[2023-06-29] MEDS ORDERED: ACETAMINOPHEN 500 MG TABLET (FP) ONE (20:38)
== END 2023-06-29 20:50 | disposition home or self-care (01) ==
LOC: JERFT 19:42
DX: R50.9 Fever, unspecified (principal); R05.9 Cough, unspecified; J02.9 Acute pharyngitis, unspecified; R09.81 Nasal congestion; M79.10 Myalgia, unspecified site; J06.9 Acute upper respiratory infection, unspecified; Z20.822 Contact with and (suspected) exposure to COVID-19
CPT/HCPCS: 0241U-QW; 99283-25

== ENCOUNTER 2023-10-10 21:18 | Emergency (ER) | payer OTHER ==
[2023-10-10 21:26] VITALS: BP 128/77; TEMP 99.5; BMI 31.8
[2023-10-10] MEDS ORDERED: ACETAMINOPHEN 325 MG TABLET (FP) ONE (23:08)
[2023-10-10] MEDS: ACETAMINOPHEN 500 MG TABLET (FP) PO ONE (23:13)
[2023-10-10] MEDS ORDERED: predniSONE 20 MG TABLET (UD) ONE (23:38)
[2023-10-10 23:58] LABS: EPI CELLS >36 /uL (0-25.1); HYALINE CASTS 6 /uL (0-3.1); URINE APPEARANCE TURBID; URINE BACTERIA >9,000 /uL (0-1359); URINE BILIRUBIN NEGATIVE (NEGATIVE); URINE COLOR YELLOW; URINE GLUCOSE (UA) NEGATIVE (NEGATIVE); URINE KETONE TRACE (NEGATIVE); URINE LEUK ESTERASE 1+ (NEGATIVE); URINE NITRITE POSITIVE (NEGATIVE); URINE PROTEIN TRACE (NEGATIVE); URINE RBC 47 /uL (0-23.9); URINE WBC 122 /uL (0-25.8)
[2023-10-11 00:12] LABS: HCG,QUALITATIVE URINE Negative
[2023-10-11] MEDS: predniSONE 20 MG TABLET (UD) PO ONE (00:12)
[2023-10-11] MEDS ORDERED: SULFAMETHOXAZOLE/TRIMETHOPRIM 800MG/160MG D.S. TABLET ONE (00:23)
[2023-10-11] MEDS: SULFAMETHOXAZOLE/TRIMETHOPRIM 800MG/160MG D.S. TABLET PO ONE (00:27)
[2023-10-11 00:56] VITALS: PULSE 97; RESP 16
== END 2023-10-11 00:55 | disposition home or self-care (01) ==
LOC: JER 21:18
DX: M25.531 Pain in right wrist (principal); R20.2 Paresthesia of skin; R30.0 Dysuria; R35.0 Frequency of micturition; R10.30 Lower abdominal pain, unspecified; N39.0 Urinary tract infection, site not specified; G56.21 Lesion of ulnar nerve, right upper limb
CPT/HCPCS: 81003; 84703; 87086; 87186; 93005; 93010; 99284-25

== ENCOUNTER 2023-11-02 20:13 | Emergency (ER) | payer OTHER ==
[2023-11-02 20:18] VITALS: BP 137/88; PULSE 105; RESP 18; TEMP 98.1; BMI 30.1
[2023-11-02] MEDS ORDERED: KETOROLAC TROMETHAMINE 30 MG/1 ML VIAL ONE (20:50)
[2023-11-02] MEDS: KETOROLAC TROMETHAMINE 30 MG/1 ML VIAL IM ONE (20:56)
[2023-11-02] MEDS ORDERED: ACETAMINOPHEN 325 MG TABLET (FP) ONE (21:29)
[2023-11-02] MEDS ORDERED: METHOCARBAMOL 500 MG TABLET ONE (21:30)
[2023-11-02] MEDS: METHOCARBAMOL 500 MG TABLET PO ONE (21:36)
[2023-11-02] MEDS: ACETAMINOPHEN 325 MG TABLET (FP) PO ONE (21:36)
== END 2023-11-02 21:45 | disposition home or self-care (01) ==
LOC: JERFT 20:13
PROC: 3E023GC Introduction of Other Therapeutic Substance into Muscle, Percutaneous Approach (ICD-10-PCS; principal; 2023-11-02)
DX: S40.022A Contusion of left upper arm, initial encounter (principal); W01.0XXA Fall on same level from slipping, tripping and stumbling without subsequent striking against object, initial encounter; Y93.E1 Activity, personal bathing and showering
CPT/HCPCS: 73030-TC-LT-FY; 73060-TC-LT-FY; 73070-TC-LT-FY; 99284-25